=== PATIENT | male | born 1930 | race Caucasian/White ===

== ENCOUNTER 2016-08-24 08:00 | Inpatient (IN) ==
[2016-08-24] MEDS ORDERED: ONDANSETRON 4 MG/2 ML VIAL IV PRN (08:20)
[2016-08-24] MEDS ORDERED: MORPHINE 2 MG/1 ML SYRINGE IV PRN (08:20)
[2016-08-24] MEDS ORDERED: NALOXONE 0.4 MG/ML VIAL IV PRN (08:20)
[2016-08-24] MEDS ORDERED: DEXTROSE 50% 25 GM/50 ML VIAL IV PRN (08:23)
[2016-08-24] MEDS ORDERED: GLUCAGON 1 MG VIAL IM PRN (08:23)
--- NOTE | 2016-08-24 13:13 | Family Practice History&Phys ---
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 Hernandez has been consulted. Preoperative labs EKG and x-ray been ordered. Current Visit: Yes (2) Atrial fibrillation Status: Chronic Assessment and plan: 08/24/2016: EKG has been ordered. I will ask his elastic assembler see him preoperatively. Current Visit: No (3) Cardiomyopathy Status: Chronic Current Visit: No (4) Type 2 diabetes mellitus Status: Chronic Assessment and plan: 08/24/2016: Sliding scale insulin has been ordered. Current Visit: No History of Present Illness Chief complaint: Left foot pain History of present illness: Mr. Evan Cornell is a 86 year old male Patient is a 86-year-old gentleman who has had progressively worsening pain, swelling and discoloration of his left foot. Patient has a history of peripheral vascular disease has been advised by Dr. Hernandez to have amputation of his left foot. Patient has been very reluctant to proceed with this but states the pain is becoming unbearable and he finally conceded. He denies any fever or chills and states is not having any chest pain or shortness of breath. He denies any pain elsewhere at present. He does not have any palpitations are increasing shortness of breath. Home Medications Medication Instructions Recorded Confirmed Type Gabapentin 600 mg PO BID 03/23/15 07/13/16 History Gemfibrozil 600 mg PO BID 03/23/15 07/13/16 History Glimepiride 1 mg PO DAILY 03/23/15 07/13/16 History Metoprolol Tartrate 50 mg PO BID 03/23/15 07/13/16 History Amiodarone Tab [Cordarone Tab] 200 mg PO DAILY tablet 03/30/15 07/13/16 Rx Baclofen Tab [Lioresal] 5 mg PO BID tablet 03/30/15 07/13/16 Rx Sertraline [Zoloft] 25 mg PO BEDTIME #30 tablet 03/30/15 07/13/16 Rx Azelastine HCl [Azelastine 0.1% 2 spray BOTH NARES BID 06/04/15 07/13/16 History Nasal [place]] Insulin Glargine [Lantus] 24 unit SUBCUT BEDTIME 06/04/15 07/13/16 History Magnesium Chloride [Slow Mag] 64 mg PO DAILY 06/04/15 07/13/16 History predniSONE TAB [PredniSONE] 5 mg PO DAILY 06/04/15 07/13/16 History Albuterol Neb [Proventil Neb] 2.5 mg RESP TX RT Q6H PRN #120 06/09/15 07/13/16 Rx nebulization solution Furosemide Tab [Lasix Tab] 40 mg PO DAILY #30 tablet 06/09/15 07/13/16 Rx Ibuprofen Tab [Motrin Tab] 600 mg PO QID PRN #30 tablet 05/15/16 07/13/16 Rx Insulin Lispro [HumaLOG] 8 unit SUBCUT BID@,18 07/13/16 07/14/16 History Meclizine HCl 12.5 mg PO TID PRN 07/13/16 07/13/16 History Nitroglycerin Sl Tab [Nitrostat] 0.4 mg SL Q5M PRN 07/13/16 07/13/16 History Allergies Allergy/AdvReac Type Severity Reaction Status Date / Time Penicillins Allergy Severe ANAPHYLAXIS Verified 03/23/15 16:04 - Constitutional Constitutional: Present: fatigue. Absent: chills, fever(s) - EENT Eyes: Absent: blurry vision, loss of vision Ears: Absent: decreased hearing, ear pain Nose, mouth and throat: Absent: hoarseness, nasal congestion, sinus pressure - Cardiovascular Cardiovascular: Absent: chest pain at rest, chest pain with activity, orthopnea , palpitations, PND - Respiratory Respiratory: Absent: cough, dyspnea, wheezing - Gastrointestinal Gastrointestinal: Absent: abdominal pain, cramping, diarrhea, hematemesis, hematochezia, nausea, vomiting - Genitourinary Genitourinary: Absent: dysuria, urinary frequency, urinary incontinence - Musculoskeletal Musculoskeletal: Present: as per HPI. Absent: arthralgias, back pain - Neurological Neurological: Absent: confusion, focal weakness, numbness, paresthesias - Psychiatric Psychiatric: Absent: anxiety, confusion - Endocrine Endocrine: Absent: fatigue, polydipsia, polyphagia - Hematologic/Lymphatic Hematologic/Lymphatic: Absent: easy bleeding, easy bruising Medical,Surgical,& Family Hx - Medical History Cardio: History of: Cardiac Dysrhythmia (A. fib), CHF, CAD, Hypertension Neurology: History of: Cerebrovascular Accident (1993), Peripheral Neuropathy ( TAKES GABAPENTIN) HEENT: History of: Eye Problem Endocrine: History of: Diabetes Mellitus (IDDM) Rheumatology: History of;: Gout Renal: History of: Renal Failure (Renal insufficiency with creatinines of about 2 or under) Gastrointestinal: History of: GI Problems (CONSTIPATION) Musculoskeletal: History of: Back/Neck Problems, Musculoskeletal Problems ( ARTHRITIS (HIPS)) - Surgical History Cardiac Surgeries: Sugical HX of: Cardiac Catheterization (STENT 2003) Neurologic Surgeries: Surgical HX of: Neurologic Surgery (BL CAROTID ENDARDECTOMY) Abdominal Surgeries: Surgical HX of: EGD Orthopedic Surgeries: Surgical HX of;: Total Knee Replacement (RIGHT) - Family History Family History: Reports;: Family Diabetes, Family Heart Disease - Social History Smoking Status: Former smoker Exam - Constitutional Exam: General: Objective patient is a well-developed white male in no acute distress. Is obviously bit depressed by his predicament. HEENT: Pupils equal and reactive to light. Patent nares and airway Neck: No meningismus, adenopathy, thyromegaly. There are no auscultated carotid bruits. Cardiovascular: Regular rhythm. No murmurs or gallops Chest: Clear to auscultation without rales rhonchi wheezes. Abdomen: Soft nontender to palpation No masses, rebound, guarding or tenderness. Neuro: Cranial nerves intact and DTRs and strength symmetric in all extremities. Dermatologic: Patient has gangrenous changes to his left foot. Musculoskeletal: There is no joint swelling or tenderness or deformity. Extremities: Patient's left foot is bandaged. He has decreased pulses in the left radial artery. I could not check his pedal pulses because of his bandage.
[2016-08-24] MEDS ORDERED: ALBUTEROL 2.5 MG/3 ML NEB RESP TX PRN (13:14)
[2016-08-24] MEDS ORDERED: NITROGLYCERIN SL 0.4 MG TABLET SL PRN (13:14)
[2016-08-24] MEDS: FUROSEMIDE 40 MG TABLET PO SCH (13:45)
[2016-08-24] MEDS: GEMFIBROZIL 600 MG TABLET PO SCH ×2 (13:45→20:45)
[2016-08-24] MEDS: METOPROLOL TARTRATE 50 MG TABLET PO SCH ×2 (13:46→20:45)
[2016-08-24] MEDS: DOCUSATE SODIUM 100 MG CAPSULE PO SCH ×2 (13:47→20:45)
[2016-08-24] MEDS: SODIUM CHLORIDE 0.45% 1,000 ML IV SCH (13:47)
[2016-08-24] MEDS: GABAPENTIN 600 MG TABLET PO SCH ×2 (13:59→20:45)
[2016-08-24] MEDS ORDERED: PANTOPRAZOLE 40 MG TABLET PO SCH (14:00)
--- NOTE | 2016-08-24 14:01 | Vascular Surgery Consult Note ---
History of Present Illness Chief complaint: diabetic gangrene left foot History of present illness: Mr. Evan Cornell is a 86 year old male Mr. Gordon is an 86-year-old man was recently hospitalized here with diabetic infection involving his left forefoot he has significant tibial occlusive disease long-term also congestive heart failure and some mild renal insufficiency. We did intensive wound care first here in [facility] and then at [facility] where he stayed for approximately 2 and half weeks he has been back at the detention this past week with wound care and has shown progression of the areas of gangrene and continued ischemic rest pain in the left foot. He returns to the hospital today with this progression with risk of infection and continued pain. I have discussed with Mr. Gordon previously and again today along with his daughter Nasima Hawthorne GERMAN the options available to us and have offered a left below-knee amputation for control of pain in the infection. Feel that the calf will support below-knee amputation but certainly told him that there is a possibility it will not heal primarily above-knee amputation may become necessary. They understand the risks and complications and he specifically states he is ready to go ahead with below-knee amputation which I will schedule for tomorrow. I will ask anesthesia about considering an epidural for postoperative pain relief. Mrs. Hawthorne has also reminded me that he has had a DO NOT RESUSCITATE status for quite some time and I will continue that here today Home Medications Medication Instructions Recorded Confirmed Type Gabapentin 600 mg PO BID 03/23/15 07/13/16 History Gemfibrozil 600 mg PO BID 03/23/15 07/13/16 History Glimepiride 1 mg PO DAILY 03/23/15 07/13/16 History Metoprolol Tartrate 50 mg PO BID 03/23/15 07/13/16 History Amiodarone Tab [Cordarone Tab] 200 mg PO DAILY tablet 03/30/15 07/13/16 Rx Baclofen Tab [Lioresal] 5 mg PO BID tablet 03/30/15 07/13/16 Rx Sertraline [Zoloft] 25 mg PO BEDTIME #30 tablet 03/30/15 07/13/16 Rx Azelastine HCl [Azelastine 0.1% 2 spray BOTH NARES BID 06/04/15 07/13/16 History Nasal [place]] Insulin Glargine [Lantus] 24 unit SUBCUT BEDTIME 06/04/15 07/13/16 History Magnesium Chloride [Slow Mag] 64 mg PO DAILY 06/04/15 07/13/16 History predniSONE TAB [PredniSONE] 5 mg PO DAILY 06/04/15 07/13/16 History Albuterol Neb [Proventil Neb] 2.5 mg RESP TX RT Q6H PRN #120 06/09/15 07/13/16 Rx nebulization solution Furosemide Tab [Lasix Tab] 40 mg PO DAILY #30 tablet 06/09/15 07/13/16 Rx Ibuprofen Tab [Motrin Tab] 600 mg PO QID PRN #30 tablet 05/15/16 07/13/16 Rx Insulin Lispro [HumaLOG] 8 unit SUBCUT BID@18 07/13/16 07/14/16 History Meclizine HCl 12.5 mg PO TID PRN 07/13/16 07/13/16 History Nitroglycerin Sl Tab [Nitrostat] 0.4 mg SL Q5M PRN 07/13/16 07/13/16 History Allergies Allergy/AdvReac Type Severity Reaction Status Date / Time Penicillins Allergy Severe ANAPHYLAXIS Verified 03/23/15 16:04 Medical,Surgical,& Family Hx - Medical History Cardio: History of: Cardiac Dysrhythmia (A. fib), CHF, CAD, Hypertension Neurology: History of: Cerebrovascular Accident (1993), Peripheral Neuropathy ( TAKES GABAPENTIN) HEENT: History of: Eye Problem, Dental Problems (wears dentures) Endocrine: History of: Diabetes Mellitus (IDDM) Rheumatology: History of;: Gout Renal: History of: Renal Failure (Renal insufficiency with creatinines of about 2 or under) Gastrointestinal: History of: GERD, GI Problems (CONSTIPATION) Musculoskeletal: History of: Back/Neck Problems, Musculoskeletal Problems ( ARTHRITIS (HIPS)) - Surgical History Cardiac Surgeries: Sugical HX of: Cardiac Catheterization (STENT 2003) Neurologic Surgeries: Surgical HX of: Neurologic Surgery (BL CAROTID ENDARDECTOMY) Abdominal Surgeries: Surgical HX of: EGD Orthopedic Surgeries: Surgical HX of;: Total Knee Replacement (RIGHT) - Family History Family History: Reports;: Family Diabetes, Family Heart Disease - Social History Smoking Status: Former smoker Frequency of Alcohol Use: None Type of Drug Use: None Exam - Constitutional Vitals: Period Temp Pulse Resp BP Sys/Velasquez Pulse Ox Last 24 Hr 97.7 F 79 20 114/57 94
[2016-08-24 14:03] LABS: Basophils # 0.1 10*3/uL (0.0-0.2); Basophils % 0.5 % (0.0-0.8); Eosinophils # 0.2 10*3/uL (0.0-0.87); Eosinophils % 1.3 % (0.00-10.9); Hematocrit 43.8 VOL% (42.0-52.0); Immature Granulocytes % 0.9 %; Immature Granulocytes Absolute 0.12 #; Lymphocytes # 0.7 10*3/uL (1.4-4.0); Lymphocytes % 5.3 % (21.2-54.2); Mean Corpuscular Hemoglobin 32 PG (27-34); Mean Corpuscular Volume 101.2 FL (87-102); Mean Platelet Volume 10.4 FL (9.6-12.0); Monocytes # 1.1 10*3/uL (0.11-0.8); Monocytes % 8.3 % (1.7-12.7); Neutrophils # 11.1 10*3/uL (1.4-7.4); Neutrophils % 83.7 % (38.7-73.9); Platelet Count 340 T/CUMM (130-400); Red Blood Count 4.33 MC/CUMM (3.8-5.5); Red Cell Distribution Width 13.8 % (9.3-17.3); White Blood Count 13.3 T/CUMM (4-12)
[2016-08-24] MEDS ORDERED: oxyCODONE/ACETAMINOPHEN 5-325 MG TABLET PO PRN ×2 (14:05)
--- NOTE | 2016-08-24 14:07 | Event Note ---
On review of Mr. Dominguez last admission and see his BUN and creatinine were in fact in normal range and he does not have significant renal insufficiency
--- NOTE | 2016-08-24 14:36 | EKG Report ---
Stationary ECG Study [facility] Test Date: 08/24/2016 1:45:35 PM Pat Name: RADHA PABLO Department: Room: 216 Gender: M General Milling Superintendent: : 1930 Requested by: Willie Gray Order Number: [id number] Reading MD: LEONA JEFFREY Intervals [place] Rate: 76 P: 117 WA: 225 QRS: 60 QRSD: 94 T: 59 QT: 338 QTc: 369 Interpretive Statements SINUS RHYTHM WITH PROLONGED WA INTERVAL LOW QRS VOLTAGE ANTEROSEPTAL MYOCARDIAL INFARCTION, OF INDETERMINATE AGE Electronically Signed On 08-24-16 21:58:48 CDT by LEONA JEFFREY [email or web address]
[2016-08-24 14:39] LABS: Bilirubin,Total 1.1 MG/DL (0.2-1.0); Calcium 9.1 MG/DL (8.5-10.1); Osmolality,Calculated 289.7 MOS/KG (273-304); Potassium 4.7 MMOL/L (3.5-5.1); Total Protein 7.2 G/DL (6.4-8.3)
--- NOTE | 2016-08-24 15:27 | XRay Report ---
XR chest 1V portable Indication: Preop Comparison: Chest x-ray dated August 05, 2016 Technique: Single frontal view of the chest. Findings: Continued cardiomegaly. Grossly stable right basilar atelectasis/consolidation and small right pleural effusion. Improved lingular atelectasis/consolidation. Visualized osseous and surrounding soft tissue structures appear grossly unchanged. IMPRESSION: As above. PROCEDURE INTERPRETED AT [facility] DEPARTMENT OF RADIOLOGY Final Report Signed by: Dr Siddhartha Maxwell
[2016-08-24] MEDS ORDERED: ALBUTEROL 2.5 MG/3 ML NEB RESP TX ONE (16:26)
[2016-08-24] MEDS: INSULIN LISPRO 100 UNIT/ML SUBCUT SCH ×2 (16:57→20:44)
[2016-08-24] MEDS: LEVOFLOXACIN INJ 250 MG in PREMIX 1 EACH IV SCH (18:03)
[2016-08-24 18:32] LABS: Apearance,Urine CLEAR (Clear); Bilirubin,Urine Negative (Negative); Blood, Urine Small mg/dL (Negative); Glucose,Urine (UA) Negative (Negative); Ketones,Urine Negative (Negative); Mucus,Urine Occasional /LPF (Occasional); Nitrite,Urine Negative (Negative); Protein,Urine Negative; RBC,Urine 1 /HPF (0-4); Urine Color Yellow (Yellow); Urine Urobilinogen < 2.0 EU/DL (0.2-1.0); WBC,Urine <1 /HPF (0-6)
[2016-08-24] MEDS ORDERED: FLUCONAZOLE 150 MG TABLET PO ONE (20:00)
[2016-08-24] MEDS: INSULIN GLARGINE 100 UNIT/ML SUBCUT SCH (20:43)
[2016-08-24] MEDS: SERTRALINE 25 MG TABLET PO SCH (20:45)
[2016-08-24] MEDS ORDERED: HYDROCORTISONE 1% TOP SCH (21:00)
[2016-08-24] MEDS ORDERED: CLOTRIMAZOLE TOP SCH (21:00)
[2016-08-24] MEDS ORDERED: METRONIDAZOLE TOP SCH (21:00)
--- NOTE | 2016-08-24 21:31 | Cardiology Consult Note ---
Sachin Pettit Vanessa RN, am scribing for, and in the presence of, Kayce Reynolds MD 21:31. Assessment and Plan - Time spent with patient Time spent with patient: Greater than 30 minutes (Due to assessment, planning, documentation, and medication review) (1) Preoperative cardiovascular examination Status: Acute Assessment and plan: SEE PLAN OF CARE LISTED BELOW. 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 Current Visit: Yes (3) Hypertension Status: Chronic Assessment and plan: SEE PLAN OF CARE LISTED BELOW. Current Visit: No (4) Atrial fibrillation Status: Chronic Assessment and plan: SEE PLAN OF CARE LISTED BELOW. Current Visit: No Qualifiers: Atrial fibrillation type: paroxysmal Qualified Code(s): I48.0 - Paroxysmal atrial fibrillation (5) Cardiomyopathy Status: Chronic Assessment and plan: SEE PLAN OF CARE LISTED BELOW. Current Visit: No Qualifiers: Cardiomyopathy type: ischemic Qualified Code(s): I25.5 - Ischemic cardiomyopathy (6) Chronic kidney disease Status: Chronic Assessment and plan: SEE PLAN OF CARE LISTED BELOW. Current Visit: No (7) Diabetic infection of left foot Status: Chronic Assessment and plan: SEE PLAN OF CARE LISTED BELOW. Current Visit: No (8) Congestive heart failure Status: Acute Assessment and plan: SEE PLAN OF CARE LISTED BELOW. Current Visit: No (9) Type 2 diabetes mellitus Status: Chronic Assessment and plan: SEE PLAN OF CARE LISTED BELOW. Current Visit: No Qualifiers: Diabetes mellitus complication status: with circulatory complication Diabetes mellitus complication detail: with peripheral angiopathy with gangrene Diabetes mellitus terminal manager insulin use: with terminal manager use Qualified Code( s): E11.52 - Type 2 diabetes mellitus with diabetic peripheral angiopathy with gangrene; Z79.4 - skilled nursing (current) use of insulin History of Present Illness - Data of Consult Patient: new to practice Consult date: 08/24/16 Requesting Physician: Michael Cavazos - Consult Narrative Reason for consult: preoperative cardiovascular exam History of present illness: PRIMARY PELLETIZER TENDER: DR. CORDOBA PCP: DR. MICHAEL CAVAZOS CARDIOLOGY CONSULT NOTE: PREOPERATIVE CARDIOVASCULAR EXAM, PERIPHERAL VASCULAR DISEASE, GANGRENE OF LEFT LOWER EXTREMITY Mr. Evan Cornell is a 86 year old white male who is a resident at [facility]. Patient has been evaluated by Dr. Cordoba in the remote past, but he does not routinely follow with him. He has risk factors significant for known history of CAD, diabetes, hypertension, sedentary lifestyle, advanced age. Past medical history includes chronic kidney disease stage II, paroxysmal atrial fibrillation, GERD, chronic systolic heart failure with decreased ejection fraction of 30%. Most recent cardiac catheterization was in 2013 at which time he underwent percutaneous coronary intervention of RCA and LAD. Mr. Gordon was recently hospitalized from July 14-July 18 after he had a minor injury to dorsum of left foot and was treated as outpatient for 3-4 weeks prior to admission, developed necrotizing soft tissue infection, and was admitted for IV antibiotics and debridement of the foot. Amputation of the left foot was discussed with patient by Dr. Mendoza, but he had been very reluctant to proceed with amputation. Apparently, patient has had progressive worsening of the left lower extremity, swelling, and discoloration of the left foot. He has not had any recent fever or chills. No recent chest pain or shortness of breath. He was directly admitted to [facility] today on Dr. Cavazos's service. Dr. Hernandez has been consulted for surgical evaluation, and patient has agreed to undergo left below the knee amputation tomorrow. Cardiology has been consulted for preoperative cardiovascular examination. Patient is known to have a history of falls and is a high fall risk, and therefore he is not a candidate for formal anticoagulation for stroke prevention. Upon exam, Mr. Gordon is currently receiving wound care to left lower extremity. His pain is relatively well controlled at this time, and he is receiving pain medication. He denies any recent or current exertional chest pain, dyspnea. Denies orthopnea, PND, palpitation, syncope. White blood cell count 13,300. Potassium is 4.7. Creatinine is 1.7 with a GFR of 40. Pulse is 70s-80s and regular by exam. Blood pressure 114/60. His beta-grzegorz has been continued upon admission. Amiodarone has not been continued at this time. Clinically, he appears to be well compensated at this time. ASSESSMENT/PLAN: 1. PREOPERATIVE CARDIOVASCULAR EXAM -in general, the patient at baseline is at intermediate risk of perioperative cardiovascular complications due to his comorbidities. He is not expressing any symptoms of ischemia, however he has a very limited functional status. He is not currently having an acute MN and is not in decompensated heart failure, nor is his arrhythmia uncontrolled. Given the urgency of his required surgery, I do not feel that it would be prudent to further delay his surgery for further risk stratification such as stress testing. Weighing the risks and benefits of delaying his surgery versus further cardiac workup in this asymptomatic patient, I believe it most prudent to proceed with surgery. I have relayed this to the patient's son-in-law, Dr. Harvinder Hawthorne. 2. ISCHEMIC CARDIOMYOPATHY -chronic. Echocardiogram July 2016 showed the LV ejection fraction 30% severe global hypokinesis, moderately dilated left atrium , aortic valve sclerosis, severe TR with PA pressure 60 mmHg. Currently he is without overt S/S of heart failure and appears to be well compensated. 3. CHRONIC SYSTOLIC HEART FAILURE WITH DECREASED EJECTION FRACTION OF 30% - 4. PERIPHERAL VASCULAR DISEASE -acute left forefoot infection causing progressive gangrene and ischemic rest pain. He is scheduled for left below the knee amputation tomorrow per Dr. Hernandez. 5. DIABETES -chronic, defer primary management to attending physician. 6. HYPERTENSION -chronic, well controlled at this time. Continue current regimen. 7. PAROXYSMAL ATRIAL FIBRILLATION -currently he is in sinus rhythm. 8. CORONARY ARTERY DISEASE -clinically, appears to be stable. No recent chest pain, shortness of breath, or other anginal equivalent 9. CHRONIC KIDNEY DISEASE - currently this is stable. CC: Michael Cavazos MD - Home Medications and Allergies Home Medications: Home Medications Medication Instructions Recorded Confirmed Type Gabapentin 600 mg PO BID 03/23/15 08/24/16 History Gemfibrozil 600 mg PO BID 03/23/15 08/24/16 History Glimepiride 1 mg PO DAILY 03/23/15 08/24/16 History Metoprolol Tartrate 50 mg PO BID 03/23/15 08/24/16 History Amiodarone Tab [Cordarone Tab] 200 mg PO DAILY tablet 03/30/15 08/24/16 Rx Baclofen Tab [Lioresal] 5 mg PO BID tablet 03/30/15 08/24/16 Rx Sertraline [Zoloft] 25 mg PO BEDTIME #30 tablet 03/30/15 08/24/16 Rx Azelastine HCl [Azelastine 0.1% 2 spray BOTH NARES BID 06/04/15 08/24/16 History Nasal [place]] Insulin Glargine [Lantus] 24 unit SUBCUT BEDTIME 06/04/15 08/24/16 History Magnesium Chloride [Slow Mag] 64 mg PO DAILY 06/04/15 08/24/16 History predniSONE TAB [PredniSONE] 5 mg PO DAILY 06/04/15 08/24/16 History Albuterol Neb [Proventil Neb] 2.5 mg RESP TX RT Q6H PRN #120 06/09/15 08/24/16 Rx nebulization solution Furosemide Tab [Lasix Tab] 40 mg PO DAILY #30 tablet 06/09/15 08/24/16 Rx Ibuprofen Tab [Motrin Tab] 600 mg PO QID PRN #30 tablet 05/15/16 08/24/16 Rx Insulin Lispro [HumaLOG] 8 unit SUBCUT BID@,18 07/13/16 08/24/16 History Meclizine HCl 12.5 mg PO TID PRN 07/13/16 08/24/16 History Nitroglycerin Sl Tab [Nitrostat] 0.4 mg SL Q5M PRN 07/13/16 08/24/16 History Allergies/Adverse Reactions: Allergies Allergy/AdvReac Type Severity Reaction Status Date / Time Penicillins Allergy Severe ANAPHYLAXIS Verified 03/23/15 16:04 - Constitutional Constitutional: Present: as per HPI - EENT Eyes: Present: as per HPI Ears: Present: as per HPI Nose, mouth and throat: Present: as per HPI - Cardiovascular Cardiovascular: Present: as per HPI - Respiratory Respiratory: Present: as per HPI - Gastrointestinal Gastrointestinal: Present: as per HPI - Genitourinary Genitourinary: Present: as per HPI - Musculoskeletal Musculoskeletal: Present: as per HPI - Neurological Neurological: Present: as per HPI - Psychiatric Psychiatric: Present: as per HPI - Endocrine Endocrine: Present: as per HPI - Hematologic/Lymphatic Hematologic/Lymphatic: Present: as per HPI Medical,Surgical,& Family Hx - Medical History Cardio: History of: Cardiac Dysrhythmia (A. fib), CHF, CAD, Hypertension Neurology: History of: Cerebrovascular Accident (1993), Peripheral Neuropathy ( TAKES GABAPENTIN) HEENT: History of: Eye Problem, Dental Problems (wears dentures) Endocrine: History of: Diabetes Mellitus (IDDM) Rheumatology: History of;: Gout Renal: History of: Renal Failure (Renal insufficiency with creatinines of about 2 or under) Gastrointestinal: History of: GERD, GI Problems (CONSTIPATION) Musculoskeletal: History of: Back/Neck Problems, Musculoskeletal Problems ( ARTHRITIS (HIPS)) - Surgical History Cardiac Surgeries: Sugical HX of: Cardiac Catheterization (STENT 2003) Neurologic Surgeries: Surgical HX of: Neurologic Surgery (BL CAROTID ENDARDECTOMY) Abdominal Surgeries: Surgical HX of: EGD Orthopedic Surgeries: Surgical HX of;: Total Knee Replacement (RIGHT) - Family History Family History: Reports;: Family Diabetes, Family Heart Disease - Social History Smoking Status: Former smoker Frequency of Alcohol Use: None Type of Drug Use: None Physical Examination Vital Signs Temp Pulse Resp BP Pulse Ox 97.7 F 79 20 114/57 94 L 08/24/16 13:05 08/24/16 13:05 08/24/16 13:05 08/24/16 13:05 08/24/16 13:05 Other: General appearance: normal weight, no acute distress, resting in bed with his eyes closed which she will not open during her interview - Head Head exam: Present: normal inspection, normocephalic, atraumatic. Absent: hematoma, laceration - Eye Eye exam: unable to assess because the patient is not opening his eyes - ENT ENT exam: Present: normal exam, normal external ear exam - Neck Neck exam: Present: normal inspection. Absent: lymphadenopathy, meningismus, tenderness, thyromegaly - Respiratory Respiratory exam: Present: clear to auscultation bilaterally anteriorly. Absent : accessory muscle use, chest wall tenderness - Cardiovascular Cardiovascular exam: Present: regular rate and rhythm. Absent: carotid bruit, gallop, JVD, rubs - GI/Abdominal GI/Abdominal exam: Present: normal bowel sounds, soft. Absent: distended, firm , guarding, hernia, mass, tenderness, rebound. - Extremities Exam Extremities exam: Present: The left lower extremity is wrapped with gauze, bilaterally there are decreased pulses that are not readily palpable. Absent: calf tenderness, edema - Back Exam Back exam: Present: Unable to assess because the patient is supine and resting with his eyes closed, not cooperative with sitting up. - Neurological Exam Neurological exam: Present: grossly intact without resting or intention tremor - Psychiatric Psychiatric exam: Present: normal affect, normal mood - Skin Skin exam: Present: The right foot has gauze dressing. Absent: cyanosis, diaphoretic, rash, urticaria Result/EKG - Labs CBC & BMP: 08/24/16 13:29 08/24/16 13:29 Lab Results: I have reviewed the past 24 hour labs Labs: Laboratory Results - last 24 hr 08/24/16 13:29 WBC 13.3 H RBC 4.33 Hgb 14.0 Hct 43.8 MCV 101.2 MCH 32 MCHC 32.0 RDW 13.8 Plt Count 340 MPV 10.4 Neut % (Auto) 83.7 H Lymph % (Auto) 5.[address] % (Auto) 8.3 Eos % (Auto) 1.3 Baso % (Auto) 0.5 Neut # (Auto) 11.1 H Lymph # (Auto) 0.[address] [place] # (Auto) 1.1 H Eos # (Auto) 0.2 Baso # (Auto) 0.1 Immature Gran % 0.9 Nucleated RBC % 0.0 Immature Gran # 0.12 Nucleated RBCs # 0.00 - EKG EKG results: interpreted by me, no acute changes EKG shows: sinus rhythm I, Kayce Reynolds MD, personally performed the services described in this documentation, ascribed by Meka Stephenson RN in my presence, and it is both accurate and complete .
[2016-08-25] MEDS: INSULIN LISPRO 100 UNIT/ML SUBCUT SCH ×4 (08:34→21:37)
[2016-08-25] MEDS: METOPROLOL TARTRATE 50 MG TABLET PO SCH ×2 (08:37→21:31)
[2016-08-25] MEDS: PANTOPRAZOLE 40 MG TABLET PO SCH ×2 (08:37→15:11)
[2016-08-25] MEDS ORDERED: VANCOMYCIN 500 MG VIAL ONE (09:15)
[2016-08-25] MEDS ORDERED: LIDOCAINE 1% 5 ML VIAL ONE (09:39)
[2016-08-25] MEDS ORDERED: PHENYLEPHRINE 1 MG/10 ML SYRINGE IV ONE (09:39)
[2016-08-25] MEDS ORDERED: PROPOFOL 200 MG/20 ML VIAL IV ONE (09:39)
[2016-08-25] MEDS ORDERED: DEXTROSE 50% 25 GM/50 ML VIAL IV PRN (10:44)
[2016-08-25] MEDS ORDERED: GLUCAGON 1 MG VIAL IM PRN (10:44)
[2016-08-25] MEDS ORDERED: SEVOFLURANE 1 UNIT/15 MINUTE INH ONE (11:35)
[2016-08-25] MEDS ORDERED: MIDAZOLAM 2 MG/2 ML VIAL ONE (11:36)
[2016-08-25] MEDS ORDERED: fentaNYL 100 MCG/2 ML VIAL ONE (11:36)
--- NOTE | 2016-08-25 12:15 | Family Practice Progress Note ---
Family Practice - PN: Subj Interval history: Patient states he had a decent night and is not having any chest pain or shortness of breath. Preoperative chest reveal small right pleural effusion and atelectasis on the right. EKG revealed sinus rhythm with first-degree AV block. I do note he had very low voltages. Patient's anxious to proceed with surgery and get it over with. He is scheduled for a left BKA today. Exam (Progress Note) - Constitutional Vitals: Period Temp Pulse Resp BP Sys/Velasquez Pulse Ox Last 24 Hr 97.1 F-98.7 F 68-92 18-20 106-123/57-75 90-96 Exam: Objective well-developed gentleman in no acute distress. He is alert and able to comprehend the issues at hand. He is anxious to proceed. Cardiovascular: Heart rates regular I hear no murmurs or gallops. Respiratory: Patient clear breath sounds bilaterally. Abdomen: Abdomen soft and nontender to palpation. 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 Hernandez has been consulted. Preoperative labs EKG and x-ray been ordered. 08/25/2016: Patient is scheduled for left BKA this morning. Current Visit: Yes (2) Atrial fibrillation Status: Chronic Assessment and plan: 08/24/2016: EKG has been ordered. I will ask his rn surgery icu see him preoperatively. Current Visit: No Qualifiers: Atrial fibrillation type: paroxysmal Qualified Code(s): I48.0 - Paroxysmal atrial fibrillation (3) Cardiomyopathy Status: Chronic Current Visit: No Qualifiers: Cardiomyopathy type: ischemic Qualified Code(s): I25.5 - Ischemic cardiomyopathy (4) Type 2 diabetes mellitus Status: Chronic Assessment and plan: 08/24/2016: Sliding scale insulin has been ordered. 08/25/2016: Blood sugars are in the 200 range. Current Visit: No
--- NOTE | 2016-08-25 12:22 | Operative Note ---
Date of procedure: 08/25/16 Procedure: Dr. 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 Gordon is an 86-year-old man with progressive diabetic gangrene of the left foot he does not have unreconstructable peripheral vascular disease I have offered a left below-knee amputation of explained the alternatives risks and complications which he understands and accepts Description of the procedure: After the induction of LMA anesthesia and regional block patient's left leg is prepped with Betadine soap and solution draped in standard fashion for below-knee amputation. The is marked for posterior flap type of amputation I then used a scalpel for skin incision cautery was used to divide the subcutaneous tissues muscle bundles going through the anterior tibialis compartment noting good muscle contraction and color anterior tibial neurovascular bundle was ligated with 0 silk and divided the fibula is divided approximately inch higher than the tibia using reciprocating saw the posterior bundle was then divided with a long amputation knife noting good soleus and gastrocnemius muscle active bleeding from muscle and skin edges the popliteal artery is ligated with 0 silk and is the popliteal vein the nerve was divided with cautery and debride away the large portion of the soleus muscle to debulk the posterior flap we then have a loose non-tension flap both gastrocnemius and skin this is irrigated this then brought up and secured with 0 Vicryl running in anterior and posterior fascial layers together 2-0 Monocryl was used to close the subcu and skin was closed with clips a posterior splint dressing is applied blood loss estimated 200 cc sponge needle and his counts are correct. Surgeon / Physician: Swapnil Hernandez Results - Labs CBC & BMP: 08/24/16 13:29 08/24/16 13:29 Discharge Plan - Discharge Medications No Action Metoprolol Tartrate 50 mg PO BID Gemfibrozil 600 mg PO BID Gabapentin 600 mg PO BID Glimepiride 1 mg PO DAILY Amiodarone Tab [Cordarone Tab] 200 mg PO DAILY tablet Baclofen Tab [Lioresal] 5 mg PO BID tablet Sertraline [Zoloft] 25 mg PO BEDTIME #30 tablet predniSONE TAB [PredniSONE] 5 mg PO DAILY Azelastine HCl [Azelastine 0.1% Nasal [place]] 2 spray BOTH NARES BID Magnesium Chloride [Slow Mag] 64 mg PO DAILY Insulin Glargine [Lantus] 24 unit SUBCUT BEDTIME Furosemide Tab [Lasix Tab] 40 mg PO DAILY #30 tablet Albuterol Neb [Proventil Neb] 2.5 mg RESP TX RT Q6H PRN #120 nebulization solution PRN Reason: Shortness Of Breath/Wheezing Ibuprofen Tab [Motrin Tab] 600 mg PO QID PRN #30 tablet PRN Reason: Hip pain Meclizine HCl 12.5 mg PO TID PRN PRN Reason: Dizziness Insulin Lispro [HumaLOG] 8 unit SUBCUT BID@12,18 Nitroglycerin Sl Tab [Nitrostat] 0.4 mg SL Q5M PRN PRN Reason: Chest Pain - Follow Up or Referral - Forms/Instructions
--- NOTE | 2016-08-25 12:25 | Anesthesia Post-Op ---
Anesthesia Post OP - Post Ansesthetic Evaluation Patient seen in post op: Yes Resp: within normal limits CV: within normal limits Mental: within normal limits Temp: within normal limits Uruh-[id number]: within normal limits Nausea and Vomiting: within normal limits Pain: within normal limits
[2016-08-25] MEDS: SODIUM CHLORIDE 0.45% 1,000 ML IV SCH (15:09)
[2016-08-25] MEDS: LEVOFLOXACIN INJ 250 MG in PREMIX 1 EACH IV SCH (15:10)
[2016-08-25] MEDS: GABAPENTIN 600 MG TABLET PO SCH ×2 (15:11→21:31)
[2016-08-25] MEDS: GEMFIBROZIL 600 MG TABLET PO SCH ×2 (15:11→21:31)
[2016-08-25] MEDS: GLIMEPIRIDE 2 MG TABLET PO SCH (15:12)
[2016-08-25] MEDS: DOCUSATE SODIUM 100 MG CAPSULE PO SCH ×2 (15:12→21:31)
[2016-08-25] MEDS: FUROSEMIDE 40 MG TABLET PO SCH (15:12)
--- NOTE | 2016-08-25 19:18 | Cardiology Progress Note ---
Sachin Pettit Vanessa, RN, am scribing for, and in the presence of, Kayce Reynolds MD 19:17. Assessment and Plan - Time spent with patient Time spent with patient: Greater than 30 minutes (1) Preoperative cardiovascular examination Status: Acute Assessment and plan: SEE PLAN OF CARE LISTED BELOW. 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 Current Visit: Yes (3) Hypertension Status: Chronic Assessment and plan: SEE PLAN OF CARE LISTED BELOW. Current Visit: No (4) Atrial fibrillation Status: Chronic Assessment and plan: SEE PLAN OF CARE LISTED BELOW. Current Visit: No Qualifiers: Atrial fibrillation type: paroxysmal Qualified Code(s): I48.0 - Paroxysmal atrial fibrillation (5) Cardiomyopathy Status: Chronic Assessment and plan: SEE PLAN OF CARE LISTED BELOW. Current Visit: No Qualifiers: Cardiomyopathy type: ischemic Qualified Code(s): I25.5 - Ischemic cardiomyopathy (6) Chronic kidney disease Status: Chronic Assessment and plan: SEE PLAN OF CARE LISTED BELOW. Current Visit: No (7) Diabetic infection of left foot Status: Chronic Assessment and plan: SEE PLAN OF CARE LISTED BELOW. Current Visit: No (8) Congestive heart failure Status: Acute Assessment and plan: SEE PLAN OF CARE LISTED BELOW. Current Visit: No (9) Type 2 diabetes mellitus Status: Chronic Assessment and plan: SEE PLAN OF CARE LISTED BELOW. Current Visit: No Qualifiers: Diabetes mellitus complication status: with circulatory complication Diabetes mellitus complication detail: with peripheral angiopathy with gangrene Diabetes mellitus correction insulin use: with correction use Qualified Code( s): E11.52 - Type 2 diabetes mellitus with diabetic peripheral angiopathy with gangrene; Z79.4 - rn long term care (current) use of insulin Cardiology - PN: Subj Interval history: PRIMARY OFFAL TRIMMER: DR. CORDOBA PCP: DR. MICHAEL CAVAZOS CARDIOLOGY CONSULT NOTE: PREOPERATIVE CARDIOVASCULAR EXAM, PERIPHERAL VASCULAR DISEASE, GANGRENE OF LEFT LOWER EXTREMITY Mr. Evan Cornell is a 86 year old white male who is a resident at [facility]. Patient has been evaluated by Dr. Cordoba in the remote past, but he does not routinely follow with him. He has risk factors significant for known history of CAD, diabetes, hypertension, sedentary lifestyle, advanced age. Past medical history includes chronic kidney disease stage II, paroxysmal atrial fibrillation, GERD, chronic systolic heart failure with decreased ejection fraction of 30%. Most recent cardiac catheterization was in 2013 at which time he underwent percutaneous coronary intervention of RCA and LAD. Mr. Gordon was recently hospitalized from July 14-July 18 after he had a minor injury to dorsum of left foot and was treated as outpatient for 3-4 weeks prior to admission, developed necrotizing soft tissue infection, and was admitted for IV antibiotics and debridement of the foot. Amputation of the left foot was discussed with patient by Dr. Mendoza, but he had been very reluctant to proceed with amputation. Apparently, patient has had progressive worsening of the left lower extremity, swelling, and discoloration of the left foot. He has not had any recent fever or chills. No recent chest pain or shortness of breath. He was directly admitted to [facility] today on Dr. Cavazos's service. Dr. Hernandez has been consulted for surgical evaluation, and patient has agreed to undergo left below the knee amputation tomorrow. Cardiology has been consulted for preoperative cardiovascular examination. Patient is known to have a history of falls and is a high fall risk, and therefore he is not a candidate for formal anticoagulation for stroke prevention. AUGUST 25, 2016: Mr. Gordon has rested without complaint or difficulty overnight. He is awake and alert, and his daughter Nasima is present with him at bedside. Patient is scheduled for left below the knee amputation later this morning. He is afebrile overnight, systolic BP 110-125. Cardiac monitoring reveals sinus rhythm, pulse rate 70s. Denies chest pain, shortness of breath, or other cardiac complaint overnight. No labs available this morning for review. We will follow with you. ASSESSMENT/PLAN: 1. PREOPERATIVE CARDIOVASCULAR EXAM -in general, the patient at baseline is at intermediate risk of perioperative cardiovascular complications due to his comorbidities. He is not expressing any symptoms of ischemia, however he has a very limited functional status. He is not currently having an acute SC and is not in decompensated heart failure, nor is his arrhythmia uncontrolled. Given the urgency of his required surgery, I do not feel that it would be prudent to further delay his surgery for further risk stratification such as stress testing. Weighing the risks and benefits of delaying his surgery versus further cardiac workup in this asymptomatic patient, I believe it most prudent to proceed with surgery. I have relayed this to the patient's son-in-law, Dr. Harvinder Hawthorne. 2. ISCHEMIC CARDIOMYOPATHY -chronic. Echocardiogram July 2016 showed the LV ejection fraction 30% severe global hypokinesis, moderately dilated left atrium , aortic valve sclerosis, severe TR with PA pressure 60 mmHg. Currently he is without overt S/S of heart failure and appears to be well compensated. 3. CHRONIC SYSTOLIC HEART FAILURE WITH DECREASED EJECTION FRACTION OF 30% - clinically, well compensated at this time. 4. PERIPHERAL VASCULAR DISEASE -acute left forefoot infection causing progressive gangrene and ischemic rest pain. He is scheduled for left below the knee amputation tomorrow per Dr. Hernandez. 5. DIABETES -chronic, defer primary management to attending physician. 6. HYPERTENSION -chronic, well controlled at this time. Continue current regimen. 7. PAROXYSMAL ATRIAL FIBRILLATION -currently he is in sinus rhythm. 8. CORONARY ARTERY DISEASE -clinically, appears to be stable. No recent chest pain, shortness of breath, or other anginal equivalent 9. CHRONIC KIDNEY DISEASE - currently this is stable. Exam (Progress Note) - Constitutional Vitals: Period Temp Pulse Resp BP Sys/Velasquez Pulse Ox Last 24 Hr 97.1 F-98.7 F 63-92 18-20 106-123/57-75 90-96 Exam: General appearance: normal weight, no acute distress - Head Head exam: Present: normal inspection, normocephalic, atraumatic. Absent: hematoma, laceration - Eye Eye exam: unable to assess because the patient is not opening his eyes - ENT ENT exam: Present: normal exam, normal external ear exam - Neck Neck exam: Present: normal inspection. Absent: lymphadenopathy, meningismus, tenderness, thyromegaly - Respiratory Respiratory exam: Present: clear to auscultation bilaterally anteriorly. Absent : accessory muscle use, chest wall tenderness - Cardiovascular Cardiovascular exam: Present: regular rate and rhythm. Absent: carotid bruit, gallop, JVD, rubs - GI/Abdominal GI/Abdominal exam: Present: normal bowel sounds, soft. Absent: distended, firm , guarding, hernia, mass, tenderness, rebound. - Extremities Exam Extremities exam: Present: The left lower extremity is wrapped with gauze, bilaterally there are decreased pulses that are not readily palpable. Absent: calf tenderness, edema - Back Exam Back exam: Present: Unable to assess because the patient is supine and resting with his eyes closed, not cooperative with sitting up. - Neurological Exam Neurological exam: Present: grossly intact without resting or intention tremor - Psychiatric Psychiatric exam: Present: normal affect, normal mood - Skin Skin exam: Present: The left foot has gauze dressing. Absent: cyanosis, diaphoretic, rash, urticaria Result/EKG - Labs CBC & BMP: 08/24/16 13:29 08/24/16 13:29 Lab Results: I have reviewed the past 24 hour labs Labs: Laboratory Results - last 24 hr 08/24/16 08/24/16 08/24/16 13:09 13:29 13:29 WBC 13.3 H RBC 4.33 Hgb 14.0 Hct 43.8 MCV 101.2 MCH 32 MCHC 32.0 RDW 13.8 Plt Count 340 MPV 10.4 Neut % (Auto) 83.7 H Lymph % (Auto) 5.3 L [place] % (Auto) 8.3 Eos % (Auto) 1.3 Baso % (Auto) 0.5 Neut # (Auto) 11.1 H Lymph # (Auto) 0.7 L [place] # (Auto) 1.1 H Eos # (Auto) 0.2 Baso # (Auto) 0.1 Immature Gran % 0.9 Nucleated RBC % 0.0 Immature Gran # 0.12 Nucleated RBCs # 0.00 Sodium 138 Potassium 4.7 Chloride 97 L Carbon Dioxide 30 Anion Gap 15.7 H BUN 31 H Creatinine 1.70 H GFR Calculation 40 BUN/Creatinine Ratio 18.00 Glucose 238 H POC Glucose 250 H Calculated Osmolality 289.7 Calcium 9.1 Total Bilirubin 1.10 H AST 21 ALT 25 Alkaline Phosphatase 77 Total Protein 7.2 Albumin 3.0 L Globulin 4.2 H Albumin/Globulin Ratio 0.7 L Urine Color Urine Appearance Urine pH Ur Specific [place] Urine Protein Urine Glucose (UA) Urine Ketones Urine Blood Urine Nitrate Urine Bilirubin Urine Urobilinogen Urine Leukocytes Urine RBC Urine WBC Urine Mucus Ur Culture Indicated? 08/24/16 08/24/16 15:46 18:04 WBC RBC Hgb Hct MCV MCH MCHC RDW Plt Count MPV Neut % (Auto) Lymph % (Auto) [place] % (Auto) Eos % (Auto) Baso % (Auto) Neut # (Auto) Lymph # (Auto) [place] # (Auto) Eos # (Auto) Baso # (Auto) Immature Gran % Nucleated RBC % Immature Gran # Nucleated RBCs # Sodium Potassium Chloride Carbon Dioxide Anion Gap BUN Creatinine GFR Calculation BUN/Creatinine Ratio Glucose POC Glucose 284 H Calculated Osmolality Calcium Total Bilirubin AST ALT Alkaline Phosphatase Total Protein Albumin Globulin Albumin/Globulin Ratio Urine Color Yellow Urine Appearance Clear Urine pH 6.0 Ur Specific [place] 1.010 Urine Protein Negative Urine Glucose (UA) Negative Urine Ketones Negative Urine Blood Small Urine Nitrate Negative Urine Bilirubin Negative Urine Urobilinogen < 2.0 H Urine Leukocytes Negative Urine RBC 1 Urine WBC <1 Urine Mucus Occasional Ur Culture Indicated? Not indicated - EKG EKG results: interpreted by me, no acute changes IRodolfo Jennifer, MD, personally performed the services described in this documentation, ascribed by Meka Stephenson RN in my presence, and it is both accurate and complete 917 .
[2016-08-25] MEDS: SERTRALINE 25 MG TABLET PO SCH (21:30)
[2016-08-25] MEDS: INSULIN GLARGINE 100 UNIT/ML SUBCUT SCH (21:33)
[2016-08-25] MEDS: CLOTRIMAZOLE 1% TOP SCH (21:37)
[2016-08-25] MEDS: [UNRECOGNIZED DRUG - OTHER] TOP SCH (21:37)
[2016-08-25] MEDS: METRONIDAZOLE 1% TOP SCH (21:37)
[2016-08-26] MEDS: ACETAMINOPHEN 325 MG TABLET PO PRN ×2 (00:25→20:40)
[2016-08-26 06:55] LABS: Basophils # 0.1 10*3/uL (0.0-0.2); Basophils % 0.4 % (0.0-0.8); Eosinophils # 0.1 10*3/uL (0.0-0.87); Eosinophils % 0.4 % (0.00-10.9); Hematocrit 39.2 VOL% (42.0-52.0); Hemoglobin 12.9 GM/DL (14.0-18.0); Immature Granulocytes % 0.7 %; Immature Granulocytes Absolute 0.11 #; Lymphocytes # 0.9 10*3/uL (1.4-4.0); Lymphocytes % 5.3 % (21.2-54.2); Mean Corpuscular HGB Conc 32.9 GM/DL (32-36); Mean Corpuscular Hemoglobin 33 PG (27-34); Mean Corpuscular Volume 99.7 FL (87-102); Mean Platelet Volume 10.6 FL (9.6-12.0); Monocytes # 1.7 10*3/uL (0.11-0.8); Monocytes % 10.1 % (1.7-12.7); Neutrophils # 13.6 10*3/uL (1.4-7.4); Neutrophils % 83.1 % (38.7-73.9); Platelet Count 329 T/CUMM (130-400); Red Blood Count 3.93 MC/CUMM (3.8-5.5); Red Cell Distribution Width 13.6 % (9.3-17.3); White Blood Count 16.4 T/CUMM (4-12)
[2016-08-26 07:39] LABS: Calcium 8.5 MG/DL (8.5-10.1); Magnesium 2.1 MG/DL (1.8-2.4); Osmolality,Calculated 274.1 MOS/KG (273-304); Potassium 4.1 MMOL/L (3.5-5.1)
--- NOTE | 2016-08-26 07:49 | Family Practice Progress Note ---
Family Practice - PN: Subj Interval history: Patient had a restless night according to his daughter. He said 102 fever in the night. He has had a slight cough according to her. He had a normal urinalysis on admission but his white blood count was elevated. His initial blood cultures were negative. This may still be related to his gangrenous foot. He had no difficulty with his surgery apparently. Exam (Progress Note) - Constitutional Vitals: Period Temp Pulse Resp BP Sys/Velasquez Pulse Ox Last 24 Hr 97.7 F-102.8 F 62-84 14-20 103-144/50-69 90-98 Exam: Objective a well-developed gentleman who arouses and answers questions. He is somnolent. His daughter states he did sleep fitfully last night. Cardiovascular: Heart rates regular without murmurs or gallops. Respiratory: The lungs clear to auscultation bilaterally. Abdomen: Abdomen soft and nontender to palpation. 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 Hernandez has been consulted. Preoperative labs EKG and x-ray been ordered. 08/25/2016: Patient is scheduled for left BKA this morning. 08/26/2016: Patient did well with his surgery. He does have postop fever. Current Visit: Yes (2) Atrial fibrillation Status: Chronic Assessment and plan: 08/24/2016: EKG has been ordered. I will ask his clinical project coordinator see him preoperatively. 08/26/2016: Patient appears to be in normal sinus rhythm Current Visit: No Qualifiers: Atrial fibrillation type: paroxysmal Qualified Code(s): I48.0 - Paroxysmal atrial fibrillation (3) Cardiomyopathy Status: Chronic Current Visit: No Qualifiers: Cardiomyopathy type: ischemic Qualified Code(s): I25.5 - Ischemic cardiomyopathy (4) Type 2 diabetes mellitus Status: Chronic Assessment and plan: 08/24/2016: Sliding scale insulin has been ordered. 08/25/2016: Blood sugars are in the 200 range. 08/26/2016: Patient's blood sugars are well controlled. Current Visit: No
--- NOTE | 2016-08-26 08:44 | XRay Report ---
Portable chest Date: 08/26/2016 Clinical history: Febrile illness Comparison: 08/24/2016 Technique: Portable AP sitting chest Findings: Stable minimal cardiomegaly with uncoiling of the aorta. Progressive parenchymal findings at the lung bases, especially the right with larger right pleural effusion. Stable mediastinum with degenerative changes. Impression: Progressive bibasilar atelectasis/infiltration, especially the right with larger small right pleural effusion. PROCEDURE INTERPRETED AT [facility] DEPARTMENT OF RADIOLOGY Final Report Signed by: Dr. Nasima Bennett
[2016-08-26] MEDS ORDERED: MECLIZINE 12.5 MG TABLET PO PRN (09:10)
[2016-08-26] MEDS: LEVOFLOXACIN INJ 250 MG in PREMIX 1 EACH IV SCH (09:15)
[2016-08-26] MEDS: CLOTRIMAZOLE 1% TOP SCH ×2 (09:18→20:41)
[2016-08-26] MEDS: [UNRECOGNIZED DRUG - OTHER] TOP SCH ×2 (09:18→20:41)
[2016-08-26] MEDS: METRONIDAZOLE 1% TOP SCH ×2 (09:18→20:41)
--- NOTE | 2016-08-26 09:22 | Cardiology Progress Note ---
Sachin Pettit Vanessa, RN, am scribing for, and in the presence of, Kayce Reynolds MD 09:00. Assessment and Plan - Time spent with patient Time spent with patient: Greater than 30 minutes (1) Preoperative cardiovascular examination Status: Acute Assessment and plan: SEE PLAN OF CARE LISTED BELOW. 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 Current Visit: Yes (3) Hypertension Status: Chronic Assessment and plan: SEE PLAN OF CARE LISTED BELOW. Current Visit: No (4) Atrial fibrillation Status: Chronic Assessment and plan: SEE PLAN OF CARE LISTED BELOW. Current Visit: No Qualifiers: Atrial fibrillation type: paroxysmal Qualified Code(s): I48.0 - Paroxysmal atrial fibrillation (5) Cardiomyopathy Status: Chronic Assessment and plan: SEE PLAN OF CARE LISTED BELOW. Current Visit: No Qualifiers: Cardiomyopathy type: ischemic Qualified Code(s): I25.5 - Ischemic cardiomyopathy (6) Chronic kidney disease Status: Chronic Assessment and plan: SEE PLAN OF CARE LISTED BELOW. Current Visit: No (7) Diabetic infection of left foot Status: Chronic Assessment and plan: SEE PLAN OF CARE LISTED BELOW. Current Visit: No (8) Congestive heart failure Status: Acute Assessment and plan: SEE PLAN OF CARE LISTED BELOW. Current Visit: No (9) Type 2 diabetes mellitus Status: Chronic Assessment and plan: SEE PLAN OF CARE LISTED BELOW. Current Visit: No Qualifiers: Diabetes mellitus complication status: with circulatory complication Diabetes mellitus complication detail: with peripheral angiopathy with gangrene Diabetes mellitus skilled nursing insulin use: with skilled nursing use Qualified Code( s): E11.52 - Type 2 diabetes mellitus with diabetic peripheral angiopathy with gangrene; Z79.4 - intermediate frame tender (current) use of insulin Cardiology - PN: Subj Interval history: PRIMARY PEOPLE GREETER: DR. CORDOBA PCP: DR. MICHAEL CAVAZOS CARDIOLOGY CONSULT NOTE: PREOPERATIVE CARDIOVASCULAR EXAM, PERIPHERAL VASCULAR DISEASE, GANGRENE OF LEFT LOWER EXTREMITY Mr. Evan Cornell is a 86 year old white male who is a resident at [facility]. Patient has been evaluated by Dr. Cordoba in the remote past, but he does not routinely follow with him. He has risk factors significant for known history of CAD, diabetes, hypertension, sedentary lifestyle, advanced age. Past medical history includes chronic kidney disease stage II, paroxysmal atrial fibrillation, GERD, chronic systolic heart failure with decreased ejection fraction of 30%. Most recent cardiac catheterization was in 2013 at which time he underwent percutaneous coronary intervention of RCA and LAD. Mr. Gordon was recently hospitalized from July 14-July 18 after he had a minor injury to dorsum of left foot and was treated as outpatient for 3-4 weeks prior to admission, developed necrotizing soft tissue infection, and was admitted for IV antibiotics and debridement of the foot. Amputation of the left foot was discussed with patient by Dr. Mendoza, but he had been very reluctant to proceed with amputation. Apparently, patient has had progressive worsening of the left lower extremity, swelling, and discoloration of the left foot. He has not had any recent fever or chills. No recent chest pain or shortness of breath. He was directly admitted to [facility] today on Dr. Cavazos's service. Dr. Hernandez has been consulted for surgical evaluation, and patient has agreed to undergo left below the knee amputation this admission. Cardiology has been consulted for preoperative cardiovascular examination. Patient is known to have a history of falls and is a high fall risk, and therefore he is not a candidate for formal anticoagulation for stroke prevention. AUG 26 2016: Mr. Gordon is seen this morning postop day #1 status post left below the knee amputation. Overnight, he has been restless and uncomfortable. No real CP or SOB. Also noted to be febrile overnight with temperature up to 102.8F, and this morning 99.9F. White blood cell count noted to be increased from 13,300 at admission to 16,400 this morning. Blood cultures collected August 24 negative, final pending. Blood pressure has been stable and is averaging 115/55. Pulse regular rate and rhythm. ASSESSMENT/PLAN: 1. ISCHEMIC CARDIOMYOPATHY -chronic. Echocardiogram July 2016 showed the LV ejection fraction 30% severe global hypokinesis, moderately dilated left atrium , aortic valve sclerosis, severe TR with PA pressure 60 mmHg. Currently he is without overt S/S of heart failure and appears to be well compensated. 2. CHRONIC SYSTOLIC HEART FAILURE WITH DECREASED EJECTION FRACTION OF 30% - clinically, well compensated at this time. His daughter reports that he was previously taking Lasix twice daily, not once daily as ordered here. We have made this adjustment in the orders. 3. PERIPHERAL VASCULAR DISEASE -acute left forefoot infection causing progressive gangrene and ischemic rest pain. Patient is now POD #1 status post left below the knee amputation per Dr. Hernandez. 4. DIABETES -chronic, defer primary management to attending physician. 5. HYPERTENSION -chronic, well controlled at this time. Continue current regimen. 6. PAROXYSMAL ATRIAL FIBRILLATION -currently he is in sinus rhythm. 7. CORONARY ARTERY DISEASE -clinically, appears to be stable. No recent chest pain, shortness of breath, or other anginal equivalent Exam (Progress Note) - Constitutional Vitals: Period Temp Pulse Resp BP Sys/Velasquez Pulse Ox Last 24 Hr 97.7 F-102.8 F 62-84 14-20 103-144/50-69 90-98 Exam: General appearance: normal weight, no acute distress - Head Head exam: Present: normal inspection, normocephalic, atraumatic. Absent: hematoma, laceration - Eye Eye exam: unable to assess because the patient is not opening his eyes - ENT ENT exam: Present: normal exam, normal external ear exam - Neck Neck exam: Present: normal inspection. Absent: lymphadenopathy, meningismus, tenderness, thyromegaly - Respiratory Respiratory exam: Present: Scant crackles in the right base. Absent: accessory muscle use, chest wall tenderness - Cardiovascular Cardiovascular exam: Present: regular rate and rhythm. Absent: carotid bruit, gallop, JVD, rubs - GI/Abdominal GI/Abdominal exam: Present: normal bowel sounds, soft. Absent: distended, firm , guarding, hernia, mass, tenderness, rebound. - Extremities Exam Extremities exam: Present: Pulses not readily palpable. Left lower extremity with dressing to left BKA stump. Absent: calf tenderness, edema - Back Exam Back exam: Present: Unable to assess because the patient is supine and resting with his eyes closed, not cooperative with sitting up. - Neurological Exam Neurological exam: Present: grossly intact without resting or intention tremor - Psychiatric Psychiatric exam: Present: normal affect, normal mood - Skin Skin exam: Present: The left lower extremity with dry and intact dressing to stump status post left BKA. Absent: cyanosis, diaphoretic, rash, urticaria Result/EKG - Labs CBC & BMP: 08/26/16 05:02 08/26/16 05:02 Lab Results: I have reviewed the past 24 hour labs Labs: Laboratory Results - last 24 hr 08/24/16 08/25/16 08/25/16 20:20 07:43 12:39 WBC RBC Hgb Hct MCV MCH MCHC RDW Plt Count MPV Neut % (Auto) Lymph % (Auto) [place] % (Auto) Eos % (Auto) Baso % (Auto) Neut # (Auto) Lymph # (Auto) [place] # (Auto) Eos # (Auto) Baso # (Auto) Immature Gran % Nucleated RBC % Immature Gran # Nucleated RBCs # Sodium Potassium Chloride Carbon Dioxide Anion Gap BUN Creatinine GFR Calculation BUN/Creatinine Ratio Glucose POC Glucose 169 H 107 H 125 H Calculated Osmolality Calcium Magnesium 08/25/16 08/25/16 08/26/16 15:31 19:56 05:02 WBC 16.4 H RBC 3.93 Hgb 12.9 L Hct 39.2 L MCV 99.7 MCH 33 MCHC 32.9 RDW 13.6 Plt Count 329 MPV 10.6 Neut % (Auto) 83.1 H Lymph % (Auto) 5.3 L [place] % (Auto) 10.1 Eos % (Auto) 0.4 Baso % (Auto) 0.4 Neut # (Auto) 13.6 H Lymph # (Auto) 0.9 L [place] # (Auto) 1.7 H Eos # (Auto) 0.1 Baso # (Auto) 0.1 Immature Gran % 0.7 Nucleated RBC % 0.0 Immature Gran # 0.11 Nucleated RBCs # 0.00 Sodium Potassium Chloride Carbon Dioxide Anion Gap BUN Creatinine GFR Calculation BUN/Creatinine Ratio Glucose POC Glucose 172 H 171 H Calculated Osmolality Calcium Magnesium 08/26/16 05:02 WBC RBC Hgb Hct MCV MCH MCHC RDW Plt Count MPV Neut % (Auto) Lymph % (Auto) [place] % (Auto) Eos % (Auto) Baso % (Auto) Neut # (Auto) Lymph # (Auto) [place] # (Auto) Eos # (Auto) Baso # (Auto) Immature Gran % Nucleated RBC % Immature Gran # Nucleated RBCs # Sodium 135 L Potassium 4.1 Chloride 94 L Carbon Dioxide 29 Anion Gap 16.1 H BUN 22 H Creatinine 1.50 H GFR Calculation 46 BUN/Creatinine Ratio 14.00 Glucose 134 H POC Glucose Calculated Osmolality 274.1 Calcium 8.5 Magnesium 2.1 - EKG EKG results: interpreted by me, no acute changes Rodolfo Pettit Jennifer, MD, personally performed the services described in this documentation, ascribed by Meka Stephenson RN in my presence, and it is both accurate and complete .
--- NOTE | 2016-08-26 09:24 | Event Note ---
Mr. Gordon underwent a left below-knee amputation yesterday for progressive diabetic gangrene of the foot. There did not appear to be significant infection involving the calf of the leg and perfusion was actually bit better than I thought it might be. He has run fever overnight and it does appear-year- old chest x-ray to have some progressive atelectasis and does have a right pleural effusion I will order incentive spirometry to try to control atelectasis. I intend to leave the dressing on until Monday when I will change it and then we will consider return to his half-way
[2016-08-26] MEDS: FUROSEMIDE 40 MG TABLET PO SCH ×2 (09:32→16:30)
[2016-08-26] MEDS: DOCUSATE SODIUM 100 MG CAPSULE PO SCH ×2 (09:32→20:40)
[2016-08-26] MEDS: PANTOPRAZOLE 40 MG TABLET PO SCH (09:32)
[2016-08-26] MEDS: GLIMEPIRIDE 2 MG TABLET PO SCH (09:32)
[2016-08-26] MEDS: INSULIN LISPRO 100 UNIT/ML SUBCUT SCH ×4 (09:33→21:12)
[2016-08-26] MEDS: GABAPENTIN 600 MG TABLET PO SCH ×2 (10:47→20:40)
[2016-08-26] MEDS: GEMFIBROZIL 600 MG TABLET PO SCH ×2 (10:47→20:40)
[2016-08-26] MEDS: METOPROLOL TARTRATE 50 MG TABLET PO SCH ×2 (10:48→20:40)
--- NOTE | 2016-08-26 12:20 | Pathology Report from [facility] ---
[facility] [place] [id number] PATIENT NAME : Jr. Pablo Albert L. ORDERING DR : NATALIE SHIPLEY MD CLINICAL HX: Diabetic/Gangrene left foot POST-OP DX: Same SPECIMEN INFO: Left leg below the knee GROSS DESCRIPTION: Received fresh labeled with the patients name RADHA PABLO JR. consists of a left leg below the knee amputation measuring approximately 36.5 cm. The skin is white-triana and hairless. All five toes are present with a large ulcerated gangrenous area of the great toe and attached to the distal surface of the foot measuring up to 15.0 cm with a 1.4 cm brown-black ulcerated area on the second toe and a 0.3 x 1.0 cm. Applique Cutter sections of the tibial artery and gangrenous tissue in one cassette. DIAGNOSIS FOR RADHA PABLO JR.: LEG, LEFT, BELOW THE KNEE AMPUTATION: Wet gangrene secondary to atherosclerotic vascular disease. COLLECTED DATE: 08/25/2016 [facility] [place] DATE: 08/26/2016 ELECTRONICALLY SIGNED BY: Abraham Gomez III, M.D. 08/26/2016 - 10:37:47 MTDCatherine
[2016-08-26] MEDS: SODIUM CHLORIDE 0.45% 1,000 ML IV SCH (14:03)
[2016-08-26] MEDS: BACLOFEN 10 MG TABLET PO SCH (20:39)
[2016-08-26] MEDS: SERTRALINE 25 MG TABLET PO SCH (20:40)
[2016-08-26] MEDS: AZELASTINE NASAL 137 MCG/SPRAY 30 ML BOTTLE BOTH NARES SCH (20:40)
[2016-08-26] MEDS: INSULIN GLARGINE 100 UNIT/ML SUBCUT SCH (21:12)
[2016-08-27 03:14] LABS: Basophils % 0.3 % (0.0-0.8); Eosinophils # 0.2 10*3/uL (0.0-0.87); Eosinophils % 1.4 % (0.00-10.9); Hematocrit 35.4 VOL% (42.0-52.0); Hemoglobin 11.3 GM/DL (14.0-18.0); Immature Granulocytes % 0.9 %; Immature Granulocytes Absolute 0.13 #; Lymphocytes # 1.6 10*3/uL (1.4-4.0); Lymphocytes % 10.6 % (21.2-54.2); Mean Corpuscular HGB Conc 31.9 GM/DL (32-36); Mean Corpuscular Hemoglobin 32 PG (27-34); Mean Corpuscular Volume 98.9 FL (87-102); Mean Platelet Volume 10.9 FL (9.6-12.0); Monocytes # 1.6 10*3/uL (0.11-0.8); Monocytes % 10.4 % (1.7-12.7); Neutrophils # 11.5 10*3/uL (1.4-7.4); Neutrophils % 76.4 % (38.7-73.9); Platelet Count 293 T/CUMM (130-400); Red Blood Count 3.58 MC/CUMM (3.8-5.5); Red Cell Distribution Width 13.7 % (9.3-17.3)
[2016-08-27 03:39] LABS: Calcium 8.4 MG/DL (8.5-10.1); Magnesium 2.1 MG/DL (1.8-2.4); Osmolality,Calculated 271.1 MOS/KG (273-304)
[2016-08-27] MEDS: AZELASTINE NASAL 137 MCG/SPRAY 30 ML BOTTLE BOTH NARES SCH ×3 (04:23→21:15)
--- NOTE | 2016-08-27 07:01 | Family Practice Progress Note ---
Family Practice - PN: Subj Interval history: Patient had a good night and is doing very well this morning. Has not had any further fever. He does have a slight cough last night. Repeat chest ray yesterday shows some bibasilar changes particularly on the right. His fever has gone and his appetite is good. Exam (Progress Note) - Constitutional Vitals: Period Temp Pulse Resp BP Sys/Velasquez Pulse Ox Last 24 Hr 97.4 F-99.4 F 61-69 16-21 91-115/43-60 91-96 Exam: Objective a well-developed gentleman who arouses and answers questions. He slept well last night and states is feeling much better. Cardiovascular: Heart rates regular without murmurs or gallops. Respiratory: The lungs clear to auscultation bilaterally. Abdomen: Abdomen soft and nontender to palpation. 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 Hernandez has been consulted. Preoperative labs EKG and x-ray been ordered. 08/25/2016: Patient is scheduled for left BKA this morning. 08/26/2016: Patient did well with his surgery. He does have postop fever. 08/27/2016: Patient's doing well postop and his fever has subsided. Current Visit: Yes (2) Atrial fibrillation Status: Chronic Assessment and plan: 08/24/2016: EKG has been ordered. I will ask his distillery manager see him preoperatively. 08/26/2016: Patient appears to be in normal sinus rhythm 08/27/2016: Patient appears to be in normal sinus rhythm Current Visit: No Qualifiers: Atrial fibrillation type: paroxysmal Qualified Code(s): I48.0 - Paroxysmal atrial fibrillation (3) Cardiomyopathy Status: Chronic Current Visit: No Qualifiers: Cardiomyopathy type: ischemic Qualified Code(s): I25.5 - Ischemic cardiomyopathy (4) Type 2 diabetes mellitus Status: Chronic Assessment and plan: 08/24/2016: Sliding scale insulin has been ordered. 08/25/2016: Blood sugars are in the 200 range. 08/26/2016: Patient's blood sugars are well controlled. 08/27/2016: Blood sugars well controlled Current Visit: No
[2016-08-27] MEDS: INSULIN LISPRO 100 UNIT/ML SUBCUT SCH ×4 (07:30→21:11)
[2016-08-27] MEDS: GEMFIBROZIL 600 MG TABLET PO SCH ×3 (10:11→21:47)
[2016-08-27] MEDS: FUROSEMIDE 40 MG TABLET PO SCH ×2 (10:11→16:35)
[2016-08-27] MEDS: BACLOFEN 10 MG TABLET PO SCH ×3 (10:12→21:47)
[2016-08-27] MEDS: DOCUSATE SODIUM 100 MG CAPSULE PO SCH ×3 (10:13→21:47)
[2016-08-27] MEDS: GLIMEPIRIDE 2 MG TABLET PO SCH (10:13)
[2016-08-27] MEDS: GABAPENTIN 600 MG TABLET PO SCH ×3 (10:14→21:47)
[2016-08-27] MEDS: PANTOPRAZOLE 40 MG TABLET PO SCH (10:15)
[2016-08-27] MEDS: METOPROLOL TARTRATE 50 MG TABLET PO SCH ×2 (10:15→21:15)
[2016-08-27] MEDS: MAGNESIUM CHLORIDE 64 MG TABLET PO SCH (10:16)
[2016-08-27] MEDS: AMIODARONE 200 MG TABLET PO SCH (10:17)
[2016-08-27] MEDS: LEVOFLOXACIN INJ 250 MG in PREMIX 1 EACH IV SCH (10:19)
[2016-08-27] MEDS: CLOTRIMAZOLE 1% TOP SCH ×2 (10:45→21:15)
[2016-08-27] MEDS: METRONIDAZOLE 1% TOP SCH ×2 (10:45→21:15)
[2016-08-27] MEDS: [UNRECOGNIZED DRUG - OTHER] TOP SCH ×2 (10:45→21:15)
--- NOTE | 2016-08-27 11:31 | Event Note ---
He has no complaints. His pain is controlled. He is afebrile and awake and alert. His dressing is dry.
[2016-08-27] MEDS: SODIUM CHLORIDE 0.45% 1,000 ML IV SCH (13:11)
[2016-08-27] MEDS: INSULIN GLARGINE 100 UNIT/ML SUBCUT SCH (21:11)
[2016-08-27] MEDS: ACETAMINOPHEN 325 MG TABLET PO PRN ×2 (21:14→21:48)
[2016-08-27] MEDS: SERTRALINE 25 MG TABLET PO SCH ×2 (21:14→21:47)
[2016-08-28 06:23] LABS: Basophils # 0.1 10*3/uL (0.0-0.2); Basophils % 0.4 % (0.0-0.8); Eosinophils # 0.4 10*3/uL (0.0-0.87); Eosinophils % 2.8 % (0.00-10.9); Hematocrit 36.1 VOL% (42.0-52.0); Hemoglobin 11.7 GM/DL (14.0-18.0); Immature Granulocytes % 0.9 %; Immature Granulocytes Absolute 0.13 #; Lymphocytes % 7.5 % (21.2-54.2); Mean Corpuscular HGB Conc 32.4 GM/DL (32-36); Mean Corpuscular Hemoglobin 32 PG (27-34); Mean Corpuscular Volume 98.6 FL (87-102); Mean Platelet Volume 10.6 FL (9.6-12.0); Monocytes # 1.2 10*3/uL (0.11-0.8); Monocytes % 8.5 % (1.7-12.7); Neutrophils % 79.9 % (38.7-73.9); Platelet Count 271 T/CUMM (130-400); Red Blood Count 3.66 MC/CUMM (3.8-5.5); Red Cell Distribution Width 13.8 % (9.3-17.3); White Blood Count 13.8 T/CUMM (4-12)
[2016-08-28 06:51] LABS: Calcium 8.6 MG/DL (8.5-10.1); Magnesium 2.2 MG/DL (1.8-2.4); Osmolality,Calculated 275.1 MOS/KG (273-304); Potassium 4.1 MMOL/L (3.5-5.1)
--- NOTE | 2016-08-28 07:17 | Family Practice Progress Note ---
Family Practice - PN: Subj Interval history: Patient had a good night according to the sitter. He is not his usual talkative self. His blood pressure has been low with diastolics running in the 40-50 range. I think I will reduce his Lasix today. He certainly not dyspneic and he has had no further fever. He states his leg feels about the same. Exam (Progress Note) - Constitutional Vitals: Period Temp Pulse Resp BP Sys/Velasquez Pulse Ox Last 24 Hr 96.3 F-99.3 F 59-68 18-20 82-104/38-65 94-97 Exam: Objective a well-developed gentleman who arouses and answers questions. He states he has no new complaints. Cardiovascular: Heart rates regular without murmurs or gallops. Respiratory: The lungs clear to auscultation bilaterally. Abdomen: Abdomen soft and nontender to palpation. 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 Hernandez has been consulted. Preoperative labs EKG and x-ray been ordered. 08/25/2016: Patient is scheduled for left BKA this morning. 08/26/2016: Patient did well with his surgery. He does have postop fever. 08/27/2016: Patient's doing well postop and his fever has subsided. 08/20/2016: Patient is doing well postop. Current Visit: Yes (2) Atrial fibrillation Status: Chronic Assessment and plan: 08/24/2016: EKG has been ordered. I will ask his medical office manager see him preoperatively. 08/26/2016: Patient appears to be in normal sinus rhythm 08/27/2016: Patient appears to be in normal sinus rhythm 08/20/2016: Patient is maintaining a normal sinus rhythm. Current Visit: No Qualifiers: Atrial fibrillation type: paroxysmal Qualified Code(s): I48.0 - Paroxysmal atrial fibrillation (3) Cardiomyopathy Status: Chronic Current Visit: No Qualifiers: Cardiomyopathy type: ischemic Qualified Code(s): I25.5 - Ischemic cardiomyopathy (4) Type 2 diabetes mellitus Status: Chronic Assessment and plan: 08/24/2016: Sliding scale insulin has been ordered. 08/25/2016: Blood sugars are in the 200 range. 08/26/2016: Patient's blood sugars are well controlled. 08/27/2016: Blood sugars well controlled 08/20/2016: Blood sugars are well controlled. Current Visit: No Specialty Discharge - Follow Up or Referrals
--- NOTE | 2016-08-28 08:06 | Event Note ---
He has no complaints. He denies pain this morning. He is afebrile and awake and alert. His dressing is dry.
[2016-08-28] MEDS ORDERED: LEVOFLOXACIN INJ 500 MG in PREMIX 1 EACH IV SCH (09:00)
[2016-08-28] MEDS: AZELASTINE NASAL 137 MCG/SPRAY 30 ML BOTTLE BOTH NARES SCH (10:09)
[2016-08-28] MEDS: GLIMEPIRIDE 2 MG TABLET PO SCH (10:10)
[2016-08-28] MEDS: FUROSEMIDE 40 MG TABLET PO SCH (10:12)
[2016-08-28] MEDS: PANTOPRAZOLE 40 MG TABLET PO SCH (10:12)
[2016-08-28] MEDS: DOCUSATE SODIUM 100 MG CAPSULE PO SCH (10:12)
[2016-08-28] MEDS: GABAPENTIN 600 MG TABLET PO SCH (10:12)
[2016-08-28] MEDS: METOPROLOL TARTRATE 50 MG TABLET PO SCH ×2 (10:13→20:58)
[2016-08-28] MEDS: GEMFIBROZIL 600 MG TABLET PO SCH (10:13)
[2016-08-28] MEDS: BACLOFEN 10 MG TABLET PO SCH (10:14)
[2016-08-28] MEDS: MAGNESIUM CHLORIDE 64 MG TABLET PO SCH (10:14)
[2016-08-28] MEDS: CLOTRIMAZOLE 1% TOP SCH (10:15)
[2016-08-28] MEDS: [UNRECOGNIZED DRUG - OTHER] TOP SCH (10:15)
[2016-08-28] MEDS: METRONIDAZOLE 1% TOP SCH (10:15)
[2016-08-28] MEDS: AMIODARONE 200 MG TABLET PO SCH (10:17)
--- NOTE | 2016-08-28 14:48 | Cardiology Progress Note ---
Assessment and Plan (1) Preoperative cardiovascular examination Status: Acute Assessment and plan: SEE PLAN OF CARE LISTED BELOW. 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 Current Visit: Yes (3) Hypertension Status: Chronic Assessment and plan: SEE PLAN OF CARE LISTED BELOW. Current Visit: No (4) Atrial fibrillation Status: Chronic Assessment and plan: SEE PLAN OF CARE LISTED BELOW. Current Visit: No Qualifiers: Atrial fibrillation type: paroxysmal Qualified Code(s): I48.0 - Paroxysmal atrial fibrillation (5) Cardiomyopathy Status: Chronic Assessment and plan: SEE PLAN OF CARE LISTED BELOW. Current Visit: No Qualifiers: Cardiomyopathy type: ischemic Qualified Code(s): I25.5 - Ischemic cardiomyopathy (6) Chronic kidney disease Status: Chronic Assessment and plan: SEE PLAN OF CARE LISTED BELOW. Current Visit: No (7) Diabetic infection of left foot Status: Chronic Assessment and plan: SEE PLAN OF CARE LISTED BELOW. Current Visit: No (8) Congestive heart failure Status: Acute Assessment and plan: SEE PLAN OF CARE LISTED BELOW. Current Visit: No (9) Type 2 diabetes mellitus Status: Chronic Assessment and plan: SEE PLAN OF CARE LISTED BELOW. Current Visit: No Qualifiers: Diabetes mellitus complication status: with circulatory complication Diabetes mellitus complication detail: with peripheral angiopathy with gangrene Diabetes mellitus nursing home insulin use: with local company intermodal truck driver use Qualified Code( s): E11.52 - Type 2 diabetes mellitus with diabetic peripheral angiopathy with gangrene; Z79.4 - rodent exterminator (current) use of insulin Cardiology - PN: Subj Interval history: PRIMARY AUTOMATIC PUNCH PRESS OPERATOR: DR. CORDOBA PCP: DR. MICHAEL CAVAZOS CARDIOLOGY CONSULT NOTE: PREOPERATIVE CARDIOVASCULAR EXAM, PERIPHERAL VASCULAR DISEASE, GANGRENE OF LEFT LOWER EXTREMITY Summary: Mr. Evan Cornell is a 86 year old white male who is a resident at [facility]. Patient has been evaluated by Dr. Cordoba in the remote past , but he does not routinely follow with him. Dr. Harvinder Hawthorne is his father- in-law. He has risk factors significant for known history of CAD, diabetes, hypertension, sedentary lifestyle, advanced age. Past medical history includes chronic kidney disease stage II, paroxysmal atrial fibrillation, GERD, chronic systolic heart failure with decreased ejection fraction of 30%. Most recent cardiac catheterization was in 2013 at which time he underwent percutaneous coronary intervention of RCA and LAD. Patient is known to have a history of falls and is a high fall risk, and therefore he is not a candidate for formal anticoagulation for stroke prevention. Mr. Gordon was recently hospitalized from July 14-July 18 after he had a minor injury to dorsum of left foot and was treated as outpatient for 3-4 weeks prior to admission, developed necrotizing soft tissue infection, and was admitted for IV antibiotics and debridement of the foot. He is now status post amputation of that extremity due to worsening infection. AUG 26 2016: Mr. Gordon is seen this morning postop day #1 status post left below the knee amputation. Overnight, he has been restless and uncomfortable. No real CP or SOB. Also noted to be febrile overnight with temperature up to 102.8F, and this morning 99.9F. White blood cell count noted to be increased from 13,300 at admission to 16,400 this morning. Blood cultures collected August 24 negative, final pending. Blood pressure has been stable and is averaging 115/55. Pulse regular rate and rhythm. August 27, 2016: I saw the patient but apparently did not write a note. Clinical condition was unchanged. August 28, 2016: Clinically he was doing well. Evening is uneventful. He has no complaints today. At the time of my visit no family is at the bedside. ASSESSMENT/PLAN: 1. ISCHEMIC CARDIOMYOPATHY -chronic. Echocardiogram July 2016 showed the LV ejection fraction 30% severe global hypokinesis, moderately dilated left atrium , aortic valve sclerosis, severe TR with PA pressure 60 mmHg. Currently he is without overt S/S of heart failure and appears to be well compensated. 2. CHRONIC SYSTOLIC HEART FAILURE WITH DECREASED EJECTION FRACTION OF 30% - clinically, well compensated at this time. 3. PERIPHERAL VASCULAR DISEASE -acute left forefoot infection causing progressive gangrene and ischemic rest pain. Patient is now POD #1 status post left below the knee amputation per Dr. Hernandez. 4. DIABETES -chronic, defer primary management to attending physician. 5. HYPERTENSION -chronic, well controlled at this time. Continue current regimen. 6. PAROXYSMAL ATRIAL FIBRILLATION -currently he is in sinus rhythm. 7. CORONARY ARTERY DISEASE -clinically, appears to be stable. No recent chest pain, shortness of breath, or other anginal equivalent Exam (Progress Note) - Constitutional Vitals: Period Temp Pulse Resp BP Sys/Velasquez Pulse Ox Last 24 Hr 98.0 F-99.3 F 64-75 18-20 91-120/45-65 94-97 Exam: General appearance: normal weight, no acute distress - Head Head exam: Present: normal inspection, normocephalic, atraumatic. Absent: hematoma, laceration - Eye Eye exam: unable to assess because the patient is not opening his eyes - ENT ENT exam: Present: normal exam, normal external ear exam - Neck Neck exam: Present: normal inspection. Absent: lymphadenopathy, meningismus, tenderness, thyromegaly - Respiratory Respiratory exam: Present: Clear to auscultation bilaterally anteriorly and laterally. Absent: accessory muscle use, chest wall tenderness - Cardiovascular Cardiovascular exam: Present: regular rate and rhythm. Absent: carotid bruit, gallop, JVD, rubs - GI/Abdominal GI/Abdominal exam: Present: normal bowel sounds, soft. Absent: distended, firm , guarding, hernia, mass, tenderness, rebound. - Extremities Exam Extremities exam: Present: Pulses not readily palpable. Left lower extremity with dressing to left BKA stump. Absent: calf tenderness, edema - Back Exam Back exam: Present: Unable to assess because the patient is supine and resting with his eyes closed, not cooperative with sitting up. - Neurological Exam Neurological exam: Present: grossly intact without resting or intention tremor - Psychiatric Psychiatric exam: Present: normal affect, normal mood - Skin Skin exam: Present: The left lower extremity with dry and intact dressing to stump status post left BKA. Absent: cyanosis, diaphoretic, rash, urticaria Result/EKG - Labs CBC & BMP: 08/28/16 05:53 08/28/16 05:53 Lab Results: I have reviewed the past 24 hour labs Labs: Laboratory Results - last 24 hr 08/27/16 08/27/16 08/27/16 15:35 16:39 20:29 WBC RBC Hgb Hct MCV MCH MCHC RDW Plt Count MPV Neut % (Auto) Lymph % (Auto) [place] % (Auto) Eos % (Auto) Baso % (Auto) Neut # (Auto) Lymph # (Auto) [place] # (Auto) Eos # (Auto) Baso # (Auto) Immature Gran % Nucleated RBC % Immature Gran # Nucleated RBCs # Sodium Potassium Chloride Carbon Dioxide Anion Gap BUN Creatinine GFR Calculation BUN/Creatinine Ratio Glucose POC Glucose 52 L 54 L 130 H Calculated Osmolality Calcium Magnesium 05/28/17 05/28/17 05/28/17 05:53 05:53 07:27 WBC 13.8 H RBC 3.66 L Hgb 11.7 L Hct 36.1 L MCV 98.6 MCH 32 MCHC 32.4 RDW 13.8 Plt Count 271 MPV 10.6 Neut % (Auto) 79.9 H Lymph % (Auto) 7.5 L [place] % (Auto) 8.5 Eos % (Auto) 2.8 Baso % (Auto) 0.4 Neut # (Auto) 11.0 H Lymph # (Auto) 1.0 L [place] # (Auto) 1.2 H Eos # (Auto) 0.4 Baso # (Auto) 0.1 Immature Gran % 0.9 Nucleated RBC % 0.0 Immature Gran # 0.13 Nucleated RBCs # 0.00 Sodium 135 L Potassium 4.1 Chloride 94 L Carbon Dioxide 28 Anion Gap 17.1 H BUN 23 H Creatinine 1.30 GFR Calculation 55 BUN/Creatinine Ratio 17.00 Glucose 134 H POC Glucose 141 H Calculated Osmolality 275.1 Calcium 8.6 Magnesium 2.2 08/28/16 11:28 WBC RBC Hgb Hct MCV MCH MCHC RDW Plt Count MPV Neut % (Auto) Lymph % (Auto) [place] % (Auto) Eos % (Auto) Baso % (Auto) Neut # (Auto) Lymph # (Auto) [place] # (Auto) Eos # (Auto) Baso # (Auto) Immature Gran % Nucleated RBC % Immature Gran # Nucleated RBCs # Sodium Potassium Chloride Carbon Dioxide Anion Gap BUN Creatinine GFR Calculation BUN/Creatinine Ratio Glucose POC Glucose 200 H Calculated Osmolality Calcium Magnesium Specialty Discharge - Follow Up or Referrals
[2016-08-28] MEDS: INSULIN LISPRO 100 UNIT/ML SUBCUT SCH ×2 (16:05→16:06)
[2016-08-28] MEDS: SODIUM CHLORIDE 0.45% 1,000 ML IV SCH (16:07)
[2016-08-28] MEDS: INSULIN GLARGINE 100 UNIT/ML SUBCUT SCH (21:01)
[2016-08-29] MEDS: SERTRALINE 25 MG TABLET PO SCH ×2 (00:50→20:58)
[2016-08-29] MEDS: GABAPENTIN 600 MG TABLET PO SCH ×3 (00:50→20:58)
[2016-08-29] MEDS: GEMFIBROZIL 600 MG TABLET PO SCH ×3 (00:50→20:58)
[2016-08-29] MEDS: BACLOFEN 10 MG TABLET PO SCH ×3 (00:50→20:57)
[2016-08-29] MEDS: AZELASTINE NASAL 137 MCG/SPRAY 30 ML BOTTLE BOTH NARES SCH ×3 (00:50→20:58)
[2016-08-29] MEDS: INSULIN LISPRO 100 UNIT/ML SUBCUT SCH ×5 (00:50→20:56)
[2016-08-29] MEDS: DOCUSATE SODIUM 100 MG CAPSULE PO SCH ×3 (00:50→20:58)
[2016-08-29] MEDS: [UNRECOGNIZED DRUG - OTHER] TOP SCH ×2 (00:51→09:51)
[2016-08-29] MEDS: CLOTRIMAZOLE 1% TOP SCH ×2 (00:51→09:51)
[2016-08-29] MEDS: METRONIDAZOLE 1% TOP SCH ×2 (00:51→09:51)
[2016-08-29 06:00] LABS: Basophils % 0.3 % (0.0-0.8); Eosinophils # 0.3 10*3/uL (0.0-0.87); Eosinophils % 2.5 % (0.00-10.9); Hematocrit 34.8 VOL% (42.0-52.0); Immature Granulocytes % 1.4 %; Immature Granulocytes Absolute 0.18 #; Lymphocytes # 0.9 10*3/uL (1.4-4.0); Lymphocytes % 6.9 % (21.2-54.2); Mean Corpuscular HGB Conc 31.6 GM/DL (32-36); Mean Corpuscular Hemoglobin 31 PG (27-34); Mean Corpuscular Volume 99.1 FL (87-102); Mean Platelet Volume 10.4 FL (9.6-12.0); Monocytes # 1.3 10*3/uL (0.11-0.8); Neutrophils % 78.9 % (38.7-73.9); Platelet Count 320 T/CUMM (130-400); Red Blood Count 3.51 MC/CUMM (3.8-5.5); Red Cell Distribution Width 13.9 % (9.3-17.3); White Blood Count 12.7 T/CUMM (4-12)
[2016-08-29 06:23] LABS: Calcium 8.4 MG/DL (8.5-10.1); Osmolality,Calculated 272.4 MOS/KG (273-304); Potassium 4.1 MMOL/L (3.5-5.1)
--- NOTE | 2016-08-29 08:10 | Family Practice Progress Note ---
Family Practice - PN: Subj Interval history: Patient is doing fairly well except he has been very somnolent and will not respond to the nurses. Sometimes he refuses taking his medicine because he is so tired. His daughter Nasima tells me he is been like this for some time and he is just sleepy and diffusely fatigued. I told him we need to start getting him up a little bit getting him moving more and he gave me tacit approval of that. He denies any increasing pain and states it seems to be well controlled. His oral pain medicine was held yesterday but this seemed make no improvement in his responsiveness. Exam (Progress Note) - Constitutional Vitals: Period Temp Pulse Resp BP Sys/Velasquez Pulse Ox Last 24 Hr 97 F-99.5 F 71-83 16-20 107-134/52-58 92-96 Exam: Objective a well-developed gentleman who arouses and answers questions. He states he has no new complaints. His leg pain is about the same. Cardiovascular: Heart rates regular without murmurs or gallops. Respiratory: The lungs clear to auscultation bilaterally. Abdomen: Abdomen soft and nontender to palpation. 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 Hernandez has been consulted. Preoperative labs EKG and x-ray been ordered. 08/25/2016: Patient is scheduled for left BKA this morning. 08/26/2016: Patient did well with his surgery. He does have postop fever. 08/27/2016: Patient's doing well postop and his fever has subsided. 08/28/2016: Patient is doing well postop. 08/29/2016: Patient is doing well postop. Current Visit: Yes (2) Atrial fibrillation Status: Chronic Assessment and plan: 08/24/2016: EKG has been ordered. I will ask his physical therapy aid see him preoperatively. 08/26/2016: Patient appears to be in normal sinus rhythm 08/27/2016: Patient appears to be in normal sinus rhythm 08/20/2016: Patient is maintaining a normal sinus rhythm. Current Visit: No Qualifiers: Atrial fibrillation type: paroxysmal Qualified Code(s): I48.0 - Paroxysmal atrial fibrillation (3) Cardiomyopathy Status: Chronic Current Visit: No Qualifiers: Cardiomyopathy type: ischemic Qualified Code(s): I25.5 - Ischemic cardiomyopathy (4) Type 2 diabetes mellitus Status: Chronic Assessment and plan: 08/24/2016: Sliding scale insulin has been ordered. 08/25/2016: Blood sugars are in the 200 range. 08/26/2016: Patient's blood sugars are well controlled. 08/27/2016: Blood sugars well controlled 08/28/2016: Blood sugars are well controlled. 08/29/2016: Patient's blood sugars doing fairly well. Current Visit: No Specialty Discharge - Follow Up or Referrals
[2016-08-29] MEDS ORDERED: fentaNYL 12 MCG/HR PATCH TRANSDERM SCH (09:00)
--- NOTE | 2016-08-29 09:05 | Event Note ---
This makes her exam was was afebrile negative blood cultures and labs look good. He is B-K amputation site is healing with no sign of ischemia or infection he can planes of pain but this is a normal finding for him excessive pain response. I think we can stop the Levaquin as there is no evidence of ongoing infection and I think we can stop the IV fluids. I think it would be safe for him to return to the correction tomorrow with daily dressing changes in this leg can be washed with bathing and then dried with alcohol and redressed. My thoughts are to leave the skin derek a good 3 weeks and I can follow him that the correction
[2016-08-29] MEDS: GLIMEPIRIDE 2 MG TABLET PO SCH (09:46)
[2016-08-29] MEDS: AMIODARONE 200 MG TABLET PO SCH (09:47)
[2016-08-29] MEDS: FUROSEMIDE 40 MG TABLET PO SCH (09:49)
[2016-08-29] MEDS: METOPROLOL TARTRATE 50 MG TABLET PO SCH ×2 (09:50→20:58)
[2016-08-29] MEDS: PANTOPRAZOLE 40 MG TABLET PO SCH (09:50)
[2016-08-29] MEDS: MAGNESIUM CHLORIDE 64 MG TABLET PO SCH (09:51)
--- NOTE | 2016-08-29 10:17 | Cardiology Progress Note ---
Assessment and Plan (1) Preoperative cardiovascular examination Status: Acute Assessment and plan: SEE PLAN OF CARE LISTED BELOW. 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 Current Visit: Yes (3) Hypertension Status: Chronic Assessment and plan: SEE PLAN OF CARE LISTED BELOW. Current Visit: No (4) Atrial fibrillation Status: Chronic Assessment and plan: SEE PLAN OF CARE LISTED BELOW. Current Visit: No Qualifiers: Atrial fibrillation type: paroxysmal Qualified Code(s): I48.0 - Paroxysmal atrial fibrillation (5) Cardiomyopathy Status: Chronic Assessment and plan: SEE PLAN OF CARE LISTED BELOW. Current Visit: No Qualifiers: Cardiomyopathy type: ischemic Qualified Code(s): I25.5 - Ischemic cardiomyopathy (6) Chronic kidney disease Status: Chronic Assessment and plan: SEE PLAN OF CARE LISTED BELOW. Current Visit: No (7) Diabetic infection of left foot Status: Chronic Assessment and plan: SEE PLAN OF CARE LISTED BELOW. Current Visit: No (8) Congestive heart failure Status: Acute Assessment and plan: SEE PLAN OF CARE LISTED BELOW. Current Visit: No (9) Type 2 diabetes mellitus Status: Chronic Assessment and plan: SEE PLAN OF CARE LISTED BELOW. Current Visit: No Qualifiers: Diabetes mellitus complication status: with circulatory complication Diabetes mellitus complication detail: with peripheral angiopathy with gangrene Diabetes mellitus group home insulin use: with terminal clerk use Qualified Code( s): E11.52 - Type 2 diabetes mellitus with diabetic peripheral angiopathy with gangrene; Z79.4 - terminal gauger (current) use of insulin Cardiology - PN: Subj Interval history: PRIMARY WET PRESS TENDER: DR. CORDOBA PCP: DR. MICHAEL CAVAZOS CARDIOLOGY CONSULT NOTE: PREOPERATIVE CARDIOVASCULAR EXAM, PERIPHERAL VASCULAR DISEASE, GANGRENE OF LEFT LOWER EXTREMITY Summary: Mr. Evan Cornell is a 86 year old white male who is a resident at [facility]. Patient has been evaluated by Dr. Cordoba in the remote past , but he does not routinely follow with him. Dr. Harvinder Hawthorne is his father- in-law. He has risk factors significant for known history of CAD, diabetes, hypertension, sedentary lifestyle, advanced age. Past medical history includes chronic kidney disease stage II, paroxysmal atrial fibrillation, GERD, chronic systolic heart failure with decreased ejection fraction of 30%. Most recent cardiac catheterization was in 2013 at which time he underwent percutaneous coronary intervention of RCA and LAD. Patient is known to have a history of falls and is a high fall risk, and therefore he is not a candidate for formal anticoagulation for stroke prevention. Mr. Gordon was recently hospitalized from July 14-July 18 after he had a minor injury to dorsum of left foot and was treated as outpatient for 3-4 weeks prior to admission, developed necrotizing soft tissue infection, and was admitted for IV antibiotics and debridement of the foot. He is now status post amputation of that extremity due to worsening infection. AUG 26 2016: Mr. Gordon is seen this morning postop day #1 status post left below the knee amputation. Overnight, he has been restless and uncomfortable. No real CP or SOB. Also noted to be febrile overnight with temperature up to 102.8F, and this morning 99.9F. White blood cell count noted to be increased from 13,300 at admission to 16,400 this morning. Blood cultures collected August 24 negative, final pending. Blood pressure has been stable and is averaging 115/55. Pulse regular rate and rhythm. August 27, 2016: I saw the patient but apparently did not write a note. Clinical condition was unchanged. August 28, 2016: Clinically he was doing well. Evening is uneventful. He has no complaints today. At the time of my visit no family is at the bedside. August 29, 2016: Clinically he continues to do well. He is status post dressing changes upon my evaluation so he is somewhat tired, he is singing to bring him his Odilia. No chest pain or shortness of breath. There is another daughter at the bedside who has not observed any cardiac issues. ASSESSMENT/PLAN: 1. ISCHEMIC CARDIOMYOPATHY -chronic. Echocardiogram July 2016 showed the LV ejection fraction 30% severe global hypokinesis, moderately dilated left atrium , aortic valve sclerosis, severe TR with PA pressure 60 mmHg. Currently he is without overt S/S of heart failure and appears to be well compensated. 2. CHRONIC SYSTOLIC HEART FAILURE WITH DECREASED EJECTION FRACTION OF 30% - clinically, well compensated at this time. 3. PERIPHERAL VASCULAR DISEASE -acute left forefoot infection causing progressive gangrene and ischemic rest pain. Patient is now POD #1 status post left below the knee amputation per Dr. Hernandez. 4. DIABETES -chronic, defer primary management to attending physician. 5. HYPERTENSION -chronic, well controlled at this time. Continue current regimen. 6. PAROXYSMAL ATRIAL FIBRILLATION -currently he is in sinus rhythm. 7. CORONARY ARTERY DISEASE -clinically, appears to be stable. No recent chest pain, shortness of breath, or other anginal equivalent Exam (Progress Note) - Constitutional Vitals: Period Temp Pulse Resp BP Sys/Velasquez Pulse Ox Last 24 Hr 97 F-99.6 F 71-83 16-20 107-154/52-65 92-96 Exam: General appearance: normal weight, no acute distress - Head Head exam: Present: normal inspection, normocephalic, atraumatic. Absent: hematoma, laceration - Eye Eye exam: unable to assess because the patient is not opening his eyes - ENT ENT exam: Present: normal exam, normal external ear exam - Neck Neck exam: Present: normal inspection. Absent: lymphadenopathy, meningismus, tenderness, thyromegaly - Respiratory Respiratory exam: Present: Clear to auscultation bilaterally anteriorly and laterally. Absent: accessory muscle use, chest wall tenderness - Cardiovascular Cardiovascular exam: Present: regular rate and rhythm. Absent: carotid bruit, gallop, JVD, rubs - GI/Abdominal GI/Abdominal exam: Present: normal bowel sounds, soft. Absent: distended, firm , guarding, hernia, mass, tenderness, rebound. - Extremities Exam Extremities exam: Present: Pulses not readily palpable. Left lower extremity with dressing to left BKA stump, there is a heel pad on the right foot. Absent : calf tenderness, edema - Back Exam Back exam: Present: Unable to assess because the patient is supine and resting with his eyes closed, not cooperative with sitting up. - Neurological Exam Neurological exam: Present: grossly intact without resting or intention tremor - Psychiatric Psychiatric exam: Present: normal affect, normal mood - Skin Skin exam: Present: The left lower extremity with dry and intact dressing to stump status post left BKA. Absent: cyanosis, diaphoretic, rash, urticaria Result/EKG - Labs CBC & BMP: 08/29/16 05:21 08/29/16 05:21 Lab Results: I have reviewed the past 24 hour labs Labs: Laboratory Results - last 24 hr 08/28/16 08/28/16 08/28/16 11:28 15:13 19:37 WBC RBC Hgb Hct MCV MCH MCHC RDW Plt Count MPV Neut % (Auto) Lymph % (Auto) [place] % (Auto) Eos % (Auto) Baso % (Auto) Neut # (Auto) Lymph # (Auto) [place] # (Auto) Eos # (Auto) Baso # (Auto) Immature Gran % Nucleated RBC % Immature Gran # Nucleated RBCs # Sodium Potassium Chloride Carbon Dioxide Anion Gap BUN Creatinine GFR Calculation BUN/Creatinine Ratio Glucose POC Glucose 200 H 244 H 221 H Calculated Osmolality Calcium Magnesium 08/29/16 08/29/16 08/29/16 05:21 05:21 07:09 WBC 12.7 H RBC 3.51 L Hgb 11.0 L Hct 34.8 L MCV 99.1 MCH 31 MCHC 31.6 L RDW 13.9 Plt Count 320 MPV 10.4 Neut % (Auto) 78.9 H Lymph % (Auto) 6.9 L [place] % (Auto) 10.0 Eos % (Auto) 2.5 Baso % (Auto) 0.3 Neut # (Auto) 10.0 H Lymph # (Auto) 0.9 L [place] # (Auto) 1.3 H Eos # (Auto) 0.3 Baso # (Auto) 0.0 Immature Gran % 1.4 Nucleated RBC % 0.0 Immature Gran # 0.18 Nucleated RBCs # 0.00 Sodium 133 L Potassium 4.1 Chloride 93 L Carbon Dioxide 31 Anion Gap 13.1 BUN 21 H Creatinine 1.20 GFR Calculation 60 BUN/Creatinine Ratio 17.00 Glucose 173 H POC Glucose 173 H Calculated Osmolality 272.4 L Calcium 8.4 L Magnesium 2.0 Specialty Discharge - Follow Up or Referrals
[2016-08-29] MEDS: ACETAMINOPHEN 325 MG TABLET PO PRN (20:56)
[2016-08-29] MEDS: INSULIN GLARGINE 100 UNIT/ML SUBCUT SCH (21:06)
--- NOTE | 2016-08-30 07:40 | Family Practice Progress Note ---
Family Practice - PN: Subj Interval history: Patient had a good night but continues to be quite somnolent. His appetite continues to be very poor. He seems somewhat withdrawn to me which his daughter also is aware of. This is certainly not his normal. He would wake up enough to tell when he was having any discomfort this morning per Exam (Progress Note) - Constitutional Vitals: Period Temp Pulse Resp BP Sys/Velasquez Pulse Ox Last 24 Hr 97.9 F-100.1 F 64-79 18-20 112-154/54-69 92-96 Exam: Objective a well-developed gentleman who arouses but not talking much this morning. Cardiovascular: Heart rates regular without murmurs or gallops. Respiratory: The lungs clear to auscultation bilaterally. Abdomen: Abdomen soft and nontender to palpation. 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 Hernandez has been consulted. Preoperative labs EKG and x-ray been ordered. 08/25/2016: Patient is scheduled for left BKA this morning. 08/26/2016: Patient did well with his surgery. He does have postop fever. 08/27/2016: Patient's doing well postop and his fever has subsided. 08/28/2016: Patient is doing well postop. 08/29/2016: Patient is doing well postop. 08/30/2016: Patient is doing well postop. He will obviously need long-term care facility if the family wishes. Current Visit: Yes (2) Atrial fibrillation Status: Chronic Assessment and plan: 08/24/2016: EKG has been ordered. I will ask his fiber designer see him preoperatively. 08/26/2016: Patient appears to be in normal sinus rhythm 08/27/2016: Patient appears to be in normal sinus rhythm 08/20/2016: Patient is maintaining a normal sinus rhythm. Current Visit: No Qualifiers: Atrial fibrillation type: paroxysmal Qualified Code(s): I48.0 - Paroxysmal atrial fibrillation (3) Cardiomyopathy Status: Chronic Current Visit: No Qualifiers: Cardiomyopathy type: ischemic Qualified Code(s): I25.5 - Ischemic cardiomyopathy (4) Type 2 diabetes mellitus Status: Chronic Assessment and plan: 08/24/2016: Sliding scale insulin has been ordered. 08/25/2016: Blood sugars are in the 200 range. 08/26/2016: Patient's blood sugars are well controlled. 08/27/2016: Blood sugars well controlled 08/28/2016: Blood sugars are well controlled. 08/29/2016: Patient's blood sugars doing fairly well. Current Visit: No Specialty Discharge - Follow Up or Referrals
[2016-08-30] MEDS: INSULIN LISPRO 100 UNIT/ML SUBCUT SCH ×2 (11:40→13:22)
--- NOTE | 2016-08-30 13:09 | Discharge Summary ---
Hospital Course - Hospital Course Hospital Course: Patient is a 86-year-old white male presented to the hospital with persistent and worsening ischemia involving his left foot. Patient had developed andre gangrenous changes and surgical intervention was felt necessary. Patient underwent left BKA the day after admission and had no complications of this procedure. Patient was seen preoperatively by cardiology as well and his EKG and laboratory studies were acceptable. Patient did well postoperatively and his wound looks good and is ready for discharge back to the longterm. 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 Status: Acute (2) Atrial fibrillation Status: Chronic (3) Cardiomyopathy Status: Chronic (4) Type 2 diabetes mellitus Status: Chronic Specialty Discharge - Follow Up or Referrals Discharge Plan - Discharge Data Disposition: Disch/Xfer to Snf Condition at Discharge: Stable Discharge Diet: diabetic diet Activity: as per physical therapy Contact your physician if you experience:: fever over 101 - Discharge Medications New Acetaminophen Tab [Tylenol Tab] 650 mg PO Q6H PRN tablet PRN Reason: Fever > 100.4 Or Headache Amiodarone Tab [Cordarone Tab] 200 mg PO DAILY tablet Azelastine Nasal 137 Mcg/[place] [Astelin Nasal [place]] 2 spray BOTH NARES BID spray Baclofen Tab [Lioresal] 5 mg PO BID tablet Furosemide Tab [Lasix Tab] 40 mg PO DAILY tablet Gabapentin Cap/Tab [Neurontin Cap/Tab] 600 mg PO BID tablet Glimepiride [Amaryl] 1 mg PO DAILY W/BREAKFAST tablet Glucagon 1 mg IM PRN PRN vial PRN Reason: Hypoglycemia w/o IV access Insulin Glargine [Lantus] 24 unit SUBCUT BEDTIME unit Magnesium Chloride [Slow Mag] 64 mg PO DAILY tablet Metoprolol Tartrate Tab [Lopressor Tab] 50 mg PO BID tablet Pantoprazole Tab [Protonix Tab] 40 mg PO DAILY tablet Sertraline [Zoloft] 25 mg PO BEDTIME tablet Albuterol Neb [Proventil Neb] 2.5 mg RESP TX RT Q6H PRN PRN Reason: Shortness Of Breath/Wheezing fentaNYL 12 MCG/HR PATCH [Duragesic 12 Patch] 1 patch TRANSDERM Q3DAY patch HYDROcodone/ACETAMIN 5-325 [[place] 5-325] 1 tablet PO Q4H PRN tablet PRN Reason: Pain Moderate (4-7) Meclizine [Antivert] 12.5 mg PO TID PRN tablet PRN Reason: Dizziness Nitroglycerin Sl Tab [Nitrostat] 0.4 mg SL Q5M PRN tablet PRN Reason: Chest Pain Continue predniSONE TAB [PredniSONE] 5 mg PO DAILY Discontinued Metoprolol Tartrate 50 mg PO BID Gemfibrozil 600 mg PO BID Gabapentin 600 mg PO BID Glimepiride 1 mg PO DAILY Amiodarone Tab [Cordarone Tab] 200 mg PO DAILY tablet Baclofen Tab [Lioresal] 5 mg PO BID tablet Sertraline [Zoloft] 25 mg PO BEDTIME #30 tablet Azelastine HCl [Azelastine 0.1% Nasal [place]] 2 spray BOTH NARES BID Magnesium Chloride [Slow Mag] 64 mg PO DAILY Insulin Glargine [Lantus] 24 unit SUBCUT BEDTIME Furosemide Tab [Lasix Tab] 40 mg PO DAILY #30 tablet Albuterol Neb [Proventil Neb] 2.5 mg RESP TX RT Q6H PRN #120 nebulization solution PRN Reason: Shortness Of Breath/Wheezing Ibuprofen Tab [Motrin Tab] 600 mg PO QID PRN #30 tablet PRN Reason: Hip pain Meclizine HCl 12.5 mg PO TID PRN PRN Reason: Dizziness Insulin Lispro [HumaLOG] 8 unit SUBCUT BID@12,18 Nitroglycerin Sl Tab [Nitrostat] 0.4 mg SL Q5M PRN PRN Reason: Chest Pain - Follow Up or Referral - Forms/Instructions Instructions: Below the Knee Amputation (DC) Exam - Constitutional Vitals: Period Temp Pulse Resp BP Sys/Vleasquez Pulse Ox Last 24 Hr 97.9 F-100.1 F 64-70 18-20 112-143/54-63 92-96 Exam: Objective a well-developed gentleman who arouses but not talking much this morning. Cardiovascular: Heart rates regular without murmurs or gallops. Respiratory: The lungs clear to auscultation bilaterally. Abdomen: Abdomen soft and nontender to palpation. Discharge Results Labs on day of discharge: Labs from last 24 hours 08/30/16 08/30/16 08/29/16 11:26 07:02 20:54 POC Glucose 128 H 134 H 132 H 08/29/16 15:21 POC Glucose 162 H DS: Provider Date of admission: 08/24/16 12:47 Primary care physician: . No PCP Attending physician on admission: Anjum Cabral MD Consults: 08/24/16 08:20 Consult to Case Mgmt/Social Srvs [CONS] Routine Reason for Case Mgmt/Social Srvs: Discharge Planning 08/24/16 08:22 Consult to Physician [CONS] Routine Comment: Consulting Provider: Swapnil Hernandez 08/24/16 08:23 Consult to Physician [CONS] Routine Comment: Consulting Provider: Cardiology - [facility] Person Notified: EMILE Date Notified: 08/24/16 Time Notified: 13:32 08/24/16 13:23 Consult to Dietitian [CONS] Routine Reason for Dietitian: Dietary Consult Consult to Pastoral Services [CONS] Routine Comment: Pastoral Screen: Request [employer] Visit Pastoral Screen Source of Request: Patient 08/26/16 09:25 Consult to Physical Therapy [CONS] Routine Reason for Physical Therapy: Evaluate and Treat Discharging clinician: Anjum Cabral MD Expected date of discharge: 08/30/16
[2016-08-30] MEDS: DOCUSATE SODIUM 100 MG CAPSULE PO SCH (13:20)
[2016-08-30] MEDS: FUROSEMIDE 40 MG TABLET PO SCH (13:20)
[2016-08-30] MEDS: AZELASTINE NASAL 137 MCG/SPRAY 30 ML BOTTLE BOTH NARES SCH (13:20)
[2016-08-30] MEDS: GLIMEPIRIDE 2 MG TABLET PO SCH (13:20)
[2016-08-30] MEDS: AMIODARONE 200 MG TABLET PO SCH (13:20)
[2016-08-30] MEDS: BACLOFEN 10 MG TABLET PO SCH (13:21)
[2016-08-30] MEDS: GEMFIBROZIL 600 MG TABLET PO SCH (13:21)
[2016-08-30] MEDS: METOPROLOL TARTRATE 50 MG TABLET PO SCH (13:21)
[2016-08-30] MEDS: GABAPENTIN 600 MG TABLET PO SCH (13:21)
[2016-08-30] MEDS: PANTOPRAZOLE 40 MG TABLET PO SCH (13:22)
[2016-08-30] MEDS: MAGNESIUM CHLORIDE 64 MG TABLET PO SCH (13:22)
--- NOTE | 2016-08-30 13:31 | Cardiology Progress Note ---
Carin Pettit April RN, am scribing for, and in the presence of, Jose Guzman MD 13:31. Assessment and Plan (1) Paroxysmal atrial fibrillation Status: Chronic Assessment and plan: This is stable on his current medical management. Current Visit: No (2) Status post below knee amputation of left lower extremity Status: Acute Current Visit: Yes (3) Cardiomyopathy Status: Chronic Assessment and plan: Clinically well compensated. Current Visit: Yes Qualifiers: Cardiomyopathy type: ischemic Qualified Code(s): I25.5 - Ischemic cardiomyopathy (4) Chronic kidney disease Status: Chronic Current Visit: Yes (5) Hypertension Status: Chronic Current Visit: Yes (6) Type 2 diabetes mellitus Status: Chronic Current Visit: Yes Qualifiers: Diabetes mellitus complication status: with circulatory complication Diabetes mellitus complication detail: with peripheral angiopathy with gangrene Diabetes mellitus mcc insulin use: with mcc use Qualified Code( s): E11.52 - Type 2 diabetes mellitus with diabetic peripheral angiopathy with gangrene; Z79.4 - detention (current) use of insulin Cardiology - PN: Subj Interval history: PRIMARY PHYSICAL METEOROLOGIST: DR. CORDOBA PCP: DR. MICHAEL CAVAZOS CARDIOLOGY CONSULT NOTE: PREOPERATIVE CARDIOVASCULAR EXAM, PERIPHERAL VASCULAR DISEASE, GANGRENE OF LEFT LOWER EXTREMITY Summary: Mr. Evan Cornell is a 86 year old white male who is a resident at [facility]. Patient has been evaluated by Dr. Cordoba in the remote past , but he does not routinely follow with him. Dr. Harvinder Hawthorne is his father- in-law. He has risk factors significant for known history of CAD, diabetes, hypertension, sedentary lifestyle, advanced age. Past medical history includes chronic kidney disease stage II, paroxysmal atrial fibrillation, GERD, chronic systolic heart failure with decreased ejection fraction of 30%. Most recent cardiac catheterization was in 2013 at which time he underwent percutaneous coronary intervention of RCA and LAD. Patient is known to have a history of falls and is a high fall risk, and therefore he is not a candidate for formal anticoagulation for stroke prevention. Mr. Gordon was recently hospitalized from July 14-July 18 after he had a minor injury to dorsum of left foot and was treated as outpatient for 3-4 weeks prior to admission, developed necrotizing soft tissue infection, and was admitted for IV antibiotics and debridement of the foot. He is now status post amputation of that extremity due to worsening infection. Mr. Gordon is day 5 status post left BKA with Dr. Hernandez dressing noted to left stump. He is resting comfortably in no acute distress. There is no family at bedside. Blood pressures been stable throughout the night, he did run a temp of 100.1. youth nutritional monitor currently shows sinus rhythm with heart rates in the 60s. Current Medications Acetaminophen (Tylenol Tab) 650 mg PO Q6H PRN PRN Reason: Fever > 100.4 or Headache Last Admin: 08/29/16 20:56 Dose: 650 mg Hydrocodone Bitart/Acetaminophen ([place] 5-325) 1 tablet PO Q4H PRN PRN Reason: Pain Moderate (4-7) Albuterol Sulfate (Proventil Neb) 2.5 mg RESP TX RT Q6H PRN PRN Reason: Shortness of Breath/Wheezing Amiodarone HCl (Cordarone Tab) 200 mg PO DAILY [facility] Last Admin: 08/29/16 09:47 Dose: 200 mg Azelastine HCl (Astelin) 2 spray BOTH NARES BID [facility] Last Admin: 08/29/16 20:58 Dose: 2 spray Baclofen (Lioresal) 5 mg PO BID [facility] Last Admin: 08/29/16 20:57 Dose: 5 mg Dextrose/Water (D50) 25 gm IV PRN PRN PRN Reason: Hypoglycemia with IV access Docusate Sodium (Colace Cap) 100 mg PO BID [facility] Last Admin: 08/29/16 20:58 Dose: 100 mg Fentanyl (Duragesic 12) 1 patch TRANSDERM Q3DAY [facility] Last Admin: 08/29/16 09:47 Dose: 1 patch Furosemide (Lasix Tab) 40 mg PO DAILY [facility] Last Admin: 08/29/16 09:49 Dose: 40 mg Gabapentin (Neurontin Cap/Tab) 600 mg PO BID [facility] Last Admin: 08/29/16 20:58 Dose: 600 mg Gemfibrozil (Lopid) 600 mg PO BID [facility] Last Admin: 08/29/16 20:58 Dose: 600 mg Glimepiride (Amaryl) 1 mg PO DAILY W/BREAKFAST [facility] Last Admin: 08/29/16 09:46 Dose: 1 mg Glucagon () 1 mg IM PRN PRN PRN Reason: Hypoglycemia w/o IV access Insulin Glargine (Lantus) 24 unit SUBCUT BEDTIME [facility] Last Admin: 08/29/16 21:06 Dose: Not Given Insulin Human Lispro (Humalog) 0 unit SUBCUT ACHS [facility] PRN Reason: Protocol Last Admin: 08/30/16 11:40 Dose: Not Given Magnesium Chloride (Slow Mag) 64 mg PO DAILY [facility] Last Admin: 08/29/16 09:51 Dose: 64 mg Meclizine HCl (Antivert) 12.5 mg PO TID PRN PRN Reason: Dizziness Metoprolol Tartrate (Lopressor Tab) 50 mg PO BID [facility] Last Admin: 08/29/16 20:58 Dose: 50 mg Morphine Sulfate () 2 mg IV Q4H PRN PRN Reason: Pain Severe (8-10) Naloxone HCl (Narcan) 0.1 mg IV Q2M PRN PRN Reason: Opiate Reversal Nitroglycerin (Nitrostat) 0.4 mg SL Q5M PRN PRN Reason: Chest Pain Ondansetron HCl (Zofran Inj) 4 mg IV Q6H PRN PRN Reason: Nausea/Vomiting Last Admin: 08/25/16 21:34 Dose: 4 mg Pantoprazole Sodium (Protonix Tab) 40 mg PO DAILY [facility] Last Admin: 08/29/16 09:50 Dose: 40 mg Sertraline HCl (Zoloft) 25 mg PO BEDTIME [facility] Last Admin: 08/29/16 20:58 Dose: 25 mg Exam (Progress Note) - Constitutional Vitals: Period Temp Pulse Resp BP Sys/Velasquez Pulse Ox Last 24 Hr 97.9 F-100.1 F 64-72 18-20 112-144/54-69 92-96 General appearance: normal weight, no acute distress - Head Head exam: Absent: abrasion, hematoma - Eye Eye exam: Absent: periorbital swelling, laceration to eyelids - Respiratory Respiratory exam: Present: clear to auscultation bilaterally. Absent: accessory muscle use, chest wall tenderness - Cardiovascular Cardiovascular exam: Present: regular rate and rhythm - GI/Abdominal GI/Abdominal exam: Present: normal bowel sounds, soft. Absent: distended - Extremities Exam Extremities exam: Present: other (Dressing to left stump dry and intact). Absent: edema - Neurological Exam Neurological exam: Absent: alert (He is somnolent and does not arouse easily) - Skin Skin exam: Present: warm, dry Result/EKG - Labs CBC & BMP: 08/29/16 05:21 08/29/16 05:21 Lab Results: I have reviewed the past 24 hour labs Labs: Laboratory Results - last 24 hr 08/29/16 08/29/16 08/29/16 11:31 15:21 20:54 POC Glucose 160 H 162 H 132 H 08/30/16 08/30/16 07:02 11:26 POC Glucose 134 H 128 H - EKG EKG results: interpreted by me EKG shows: sinus rhythm Specialty Discharge - Follow Up or Referrals I, Jose Guzman MD, personally performed the services described in this documentation, ascribed by Marlene Del Rosario RN in my presence, and it is both accurate and complete [id number] .
[2016-08-30 13:47] VITALS: BP 141/66
== END 2016-08-30 15:16 | DRG 240 ==
LOC: N.2E 12:47
PROVIDERS: ADMIT Family Medicine; ATTEND Family Medicine